=== PATIENT | female | born 1980 | race Caucasian/White ===

== ENCOUNTER 2016-12-15 17:24 | Inpatient (IN) | payer OTHER ==
--- NOTE | ~2016-12-15 | DS ---
Unit #: [id number] #: [id number] Patient: JOHN BRIONES [id number] [address] [place], [place] [address] [id number] I MR#: [id number] NAME: JOHN BRIONES. ROOM: 338 Age: 36 Sex: F Admission Date: 12/16/2016 : 1980 Discharge Date: 12/18/2016 Attending Physician: Deisy Vincent M.D. Primary Care Physician: Michael Espinoza M.D. DISCHARGE SUMMARY REASON FOR ADMISSION Left arm swelling/abscess. HISTORY OF PRESENT ILLNESS/HOSPITAL COURSE The patient is a 28-year-old female with a prior history of breast carcinoma, IV drug abuse, ongoing, who presented secondary to left anterior cubital fossa abscess. There was open purulent drainage noted, as well as surrounding erythema. She was initially admitted and placed on IV antibiotics. Consultation was placed to [facility]. The patient ultimately underwent on 12/17/2016 incision and drainage. Culture was appropriately sent, which did come back as MSSA. She was transitioned to p.o. antibiotics. Routine blood cultures through hospital course did not yield any bacterial growth. HIV screen was negative. It was noted the patient initially stated that she was homeless and had no place to go. We attempted long-term placement on 12/18/2016, however, she refused. She apparently called a friend and stated that she was going to go to her house at the time of discharge. DISPOSITION She will be discharged to her friend's home. FINAL DISCHARGE DIAGNOSES 1. Left anterior antecubital fossa abscess secondary to IV drug abuse. 2. Ongoing IV drug abuse with poor insight into disease process. 3. Prior history of breast carcinoma, status post left mastectomy at age of 31. 4. Prior history of bacterial endocarditis. 5. MSSA wound. 6. Prior history of MRSA. DISCHARGE MEDICATIONS 1. Pen VK 500 mg p.o. t.i.d. times 10 days. 2. Naprosyn 500 mg p.o. b.i.d. times 10 days. DISCHARGE CONDITION Stable. Unit #: [id number] #: [id number] Patient: JOHN BRIONES Please note, the patient's overall long-term prognosis is poor secondary to her lack of insight into her disease process as well as ongoing IV drug abuse. She was counseled on numerous occasions in regard to the same. She was also notified that if she continues on her current path of IV drug abuse, her life expectancy is likely less than one year. Dictated by... Deisy Vincent M.D. BIA/jenna TD: 12/20/2016 11:33 JOB #: [id number] DISCHARGE SUMMARY Page 1 of 1 X Deisy Vincent MD X DISCHARGE SUMMARY
--- NOTE | ~2016-12-15 | HP ---
Unit #: [id number] #: [id number] Patient: JOHN BRIONES [id number] [address] [place], [place] [address] [id number] I MR#: [id number] NAME: JOHN BRIONES. ROOM: 338 Age: 36 Sex: F Admission Date: 12/16/2016 : 1980 Attending Physician: Izabel Carter M.D. Primary Care Physician: Michael Espinoza M.D. HISTORY AND PHYSICAL CHIEF COMPLAINT Abscess/left arm swelling. HISTORY OF PRESENT ILLNESS The patient is a 36-year-old female with a history of IV drug abuse, breast cancer status post mastectomy, brought to the emergency room complaining of left arm abscess. The patient stated she has been using the IV drug abuse with meth and the last time she used IV drugs was two days ago in the other arm. The patient presented to the emergency room complaining of chills. Denies any fever. Open purulent drainage, superficial wound. The patient has been admitted for the above reasons. The patient had multiple superficial abscesses in the past and has been admitted in the past for a similar reason. PAST MEDICAL HISTORY 1. History of breast cancer, status post left mastectomy at the age of 31. 2. ADHD. 3. Bacterial endocarditis. 4. History of MRSA abscess. PAST SURGICAL HISTORY 1. Tubal ligation. 2. Left mastectomy. HOME MEDICATIONS None. SOCIAL HISTORY The patient is homeless. She smokes one half pack per day of tobacco. She ingests methamphetamine. Stated last injected was two days ago. Does not drink alcohol. FAMILY HISTORY Negative for coronary artery disease. ALLERGIES She is allergic to latex and sulfa. MEDICATIONS None. REVIEW OF SYSTEMS Fourteen point review of systems was performed and only pertinent positive Unit #: [id number] #: [id number] Patient: JOHN BRIONES findings are described above, remaining are negative. PHYSICAL EXAMINATION GENERAL: The patient is lying on the bed, not in acute distress. VITALS: Temperature 98.3, pulse 79, respiratory rate 16, blood pressure 127/85, sat'ing 100% at room air. HEAD: Atraumatic, normocephalic. EENT: Pupils equal, round, reactive to light and accommodation. Extraocular movements are intact. Dry mucous membranes. NECK: Supple. LUNGS: Decreased air entry at the bases. HEART: Regular rate and rhythm. ABDOMEN: Soft. Positive bowel sounds. EXTREMITIES: The patient has an open superficial wound at the antecubital fossa of the left arm with purulent drainage and minimal surrounding induration and tenderness. NEUROLOGIC: The patient is alert, awake, oriented. No gross focal motor deficit. DIAGNOSTIC STUDIES LABORATORY DATA: Glucose 121, BUN 13, creatinine 0.6, sodium 136, potassium 3.2, chloride 101, bicarb 25, calcium 8.6, WBC 6.8, hemoglobin 12.4, hematocrit 36.4, platelet 277. ASSESSMENT AND PLAN 1. Left arm antecubital fossa abscess, likely superficial. 2. Intravenous drug abuse. 3. History of breast cancer, status post left mastectomy. 4. Hypokalemia. Plan to admit the patient as an observation with telemetry. Continue with the IV antibiotics with clindamycin and transition to oral clindamycin. Continue with the above. Check the wound cultures and continue with contact isolation. Check the lactate and urine toxicology as not done in the emergency room and apply the bacitracin ointment to the wound. Repeat the CBC and BMP in the morning. Further recommendations will follow. HOME MEDICATIONS She is on: 1. Trazodone. 2. Neurontin. 3. Seroquel. Will continue all of the home medications. Further recommendations will follow. Dictated by Rafael Glez TD: 12/16/2016 05:34 JOB #: [id number] Unit #: [id number] #: [id number] Patient: JOHN BRIONES HISTORY AND PHYSICAL Page 1 of 1 X X HISTORY AND PHYSICAL
--- NOTE | ~2016-12-15 | OR ---
Unit #: [id number] #: [id number] Patient: JOHN BRIONES [id number] [address] [address] [id number] Domitila MR#: [id number] NAME: JOHN BRIONES ROOM: [facility] Date of Procedure: 12/17/2016 Admission Date: 12/16/2016 Surgeon: Nicholas Ram III, M.D. : 1980 Attending Physician: Deisy Vincent M.D. Primary Care Physician: Michael Espinoza M.D. OPERATIVE REPORT PREOPERATIVE DIAGNOSIS Left antecubital fossa abscess secondary to IV drug use. POSTOPERATIVE DIAGNOSIS Left antecubital fossa abscess secondary to IV drug use. PROCEDURE PERFORMED Incision and drainage of left antecubital fossa abscess. ANESTHESIA General. SPECIMEN Tissue sent to pathology. COMPLICATIONS None apparent. INDICATIONS FOR PROCEDURE This is a 36-year-old lady, who presents with history of IV drug use and a left antecubital fossa abscess. She has also some chronic swelling of left upper extremity due to prior mastectomy and axillary lymph node dissection. DESCRIPTION OF PROCEDURE After consent was obtained, the patient was brought to the operating room and placed in the supine position. General anesthetic was administered, and her left antecubital fossa was prepped and draped in standard surgical fashion. I made an elliptical incision around the area that was necrotic appearing. This was a fairly limited abscess. The debridement site was approximately 1 x 3 cm. I did debride all nonviable tissue, and I used hemostat to probe the deep spaces and there was no other extension of the infection that I could see. I then packed the wound with Betadine soaked Kerlix gauze. She tolerated the procedure without any problems and returned to the recovery room in stable condition. Dictated by... Nicholas Ram III, M.D. VCL/modl Unit #: [id number] #: [id number] Patient: JOHN BRIONES TD: 12/18/2016 07:40 JOB #: [id number] OPERATIVE REPORT Page 1 of 1 X Nicholas Ram III, MD PROCEDURE OPERATIVE NOTE
--- NOTE | ~2016-12-15 | CO ---
Unit #: [id number] #: [id number] Patient: JOHN HERNANDEZ [id number] [address] [place], [place] [address] [id number] I MR#: [id number] NAME: JOHN HERNANDEZ. ROOM: 338 Age: 36 Sex: F Admission Date: 12/16/2016 : 1980 Attending Physician: Deisy Vincent M.D. Primary Care Physician: Michael Espinoza M.D. Consultation Date: 12/16/2016 CONSULTATION REPORT REASON FOR CONSULTATION Left antecubital fossa abscess. HISTORY OF PRESENT ILLNESS Thank you very much for asking us to see Ms. Hernandez. She is a 36-year-old white female who has history of IV drug abuse and is status post left mastectomy 3-4 years ago at [facility]. Postoperative course was complicated by left upper extremity lymphedema. She has been known to use IV drugs in the past. She states that she usually injects her right upper extremity because of her left upper extremity lymphedema. She developed a red indurated fluctuant area 3-4 days ago. It subsequently has drained. She presents at this time for further evaluation and treatment. PAST MEDICAL HISTORY Endocarditis, MRSA abscesses, history of breast cancer status post left mastectomy. PAST SURGICAL HISTORY Left mastectomy, tubal ligation. HOME MEDICATIONS None. SOCIAL HISTORY Positive for tobacco, methamphetamine but no alcohol. FAMILY HISTORY Noncontributory. ALLERGIES Latex and sulfa. REVIEW OF SYSTEMS Negative except for above. IMMUNIZATIONS Immunization status is unknown. PHYSICAL EXAMINATION GENERAL: Well-developed, well-nourished white female in no apparent distress. EXTREMITIES: Examination of her left upper extremity reveals a necrotic open area of the left antecubital fossa. She has left upper extremity lymphedema. No significant right upper extremity lymphedema is present. Unit #: [id number] #: [id number] Patient: JOHN HERNANDEZ DIAGNOSTIC STUDIES LABORATORY STUDIES: The patient has a CMP that shows a glucose of 99, BUN 9, creatinine 0.5. Normal liver function studies. White count is 7.4 with a hemoglobin of 12.5, hematocrit 36.9. IMPRESSION A 36-year-old white female with a left antecubital fossa necrotic abscess. RECOMMENDATIONS We recommend incision, drainage and debridement in the operating room. She has eaten today, so we will schedule this for tomorrow. All the risks and benefits have been fully explained to the patient in detail, including the risk of bleeding, infection, neurovascular injury, worsening lymphedema, additional surgery and other risks. She understands completely and requests to proceed. Dictated by... Rafael Latham/ezequiel TD: 12/17/2016 09:42 JOB #: [id number] CONSULTATION REPORT Page 1 of 1 X Kel Alcaraz MD X CONSULTATION REPORT
[~2016-12-15 17:24] MED LIST: ADDERALL 30 MG30 M1 PO; ALPRAZOLAM PO; ANTIDIARRHEAL2 MG PO; BENADRYL25 MG PO; CLINDAMYCIN HC300 MG PO; CUBICIN IV; DERMACORT1 GM EXT; DESYREL100 MG PO; ELIDEL100 GM TOP; FLEXERIL PO; FLEXERIL10 MG PO; GABAPENTIN300 MG PO; HYDROCODON-ACE1 EACH PO; IBUPROFEN400 MG PO; KEFLEX500 M1 PO; LOMOTIL TABLET1 TAB PO; MEDROL DOSE PAK; MEDROL DOSEPAK4 MG DOB; METHADONE HCL10 MG PO; METHOCARBAMOL500 MG PO; NAPROXEN PO; NORCO 10-325 TA1 TAB PO; ORUDIS75 M1 PO; OXAPROZIN600 MG PO; PEN-VEE K PO; PENICILLIN V P500 MG PO; PHENERGAN25 MG PO; REQUIP0.25 MG PO; TRAMADOL HCL50 M1 PO; ULTRAM PO; VICODIN 5/500 T1 TAB PO; VISTARIL50 MG PO; XANAX2 MG PO; ZOFRAN ODT4 MG DOB; ZYVOX600 MG PO; [UNRECOGNIZED DRUG - OTHER]
[2016-12-15 21:24] LABS: BASOPHIL% 0.3 % (0-2.5); EOSINOPHIL# 0.2 X10e3 (0-0.7); EOSINOPHIL% 2.9 % (0.0-7.0); HEMATOCRIT 36.4 % (35.0-45.0); HEMOGLOBIN 12.4 gm/dL (12.0-16.0); LYMPHOCYTE# 1.9 X10e3 (1.0-3.5); LYMPHOCYTE% 28.2 % (17.0-45.0); MEAN PLATELET VOLUME 7.9 FL (6.5-11.5); MONOCYTE# 0.5 X10e3 (0-1.0); MONOCYTE% 6.7 % (3.0-12.0); NEUTROPHIL# 4.2 X10e3 (1.5-7.1); NEUTROPHIL% 61.9 % (40-75); PLATELET COUNT 277 X10e3 (140-420); RED CELL DISTRIBUTION WIDTH 13.9 % (11.0-15.5); WHITE BLOOD COUNT 6.8 X10e3 (4.0-10.5)
[2016-12-15 21:27] LABS: DIFF IND NO
[2016-12-15 21:49] LABS: BUN/CREATININE RATIO 21.66; CALCIUM SERUM 8.6 mg/dL (8.4-10.2); CREATININE SERUM 0.6 mg/dL (0.6-1.4); GLOM FILT RATE Estimated 115.6 mL/min (>60); POTASSIUM 3.2 mmol/L (3.5-5.1)
[2016-12-16] MEDS ORDERED: TRAZODONE PO (00:10)
[2016-12-16] MEDS ORDERED: SEROQUEL PO (00:11)
[2016-12-16] MEDS ORDERED: NEURONTIN600 MG PO (00:11)
[2016-12-16 02:24] LABS: AMPHETAMINE POS (NEG); BARBITURATES NEG (NEG); BENZODIAZEPINES NEG (NEG); COCAINE NEG (NEG); MARIJUANA POS (NEG); OPIATES POS (NEG); TRICYCLIC ANTIDEPRESSANTS NEG (NEG); U METHADONE NEG (NEG)
[2016-12-16 08:01] LABS: BASOPHIL% 0.5 % (0-2.5); EOSINOPHIL# 0.3 X10e3 (0-0.7); EOSINOPHIL% 3.8 % (0.0-7.0); HEMATOCRIT 36.9 % (35.0-45.0); HEMOGLOBIN 12.5 gm/dL (12.0-16.0); LYMPHOCYTE# 2.1 X10e3 (1.0-3.5); LYMPHOCYTE% 28.1 % (17.0-45.0); MEAN CELL VOLUME 90.5 FL (83-96); MEAN CORPUSCULAR HEMOGLOBIN 30.6 PG (28-34); MEAN CORPUSCULAR HGB CONC 33.8 g/dL (30-36); MONOCYTE# 0.5 X10e3 (0-1.0); MONOCYTE% 6.7 % (3.0-12.0); NEUTROPHIL# 4.5 X10e3 (1.5-7.1); NEUTROPHIL% 60.9 % (40-75); PLATELET COUNT 264 X10e3 (140-420); RED BLOOD COUNT 4.08 X10e (3.90-5.30); RED CELL DISTRIBUTION WIDTH 13.9 % (11.0-15.5); WHITE BLOOD COUNT 7.4 X10e3 (4.0-10.5)
[2016-12-16 08:02] LABS: DIFF IND NO
[2016-12-16 08:52] LABS: CALCIUM SERUM 8.8 mg/dL (8.4-10.2); CREATININE SERUM 0.5 mg/dL (0.6-1.4); GLOM FILT RATE Estimated 122.8 mL/min (>60); POTASSIUM 3.8 mmol/L (3.5-5.1)
[2016-12-17 05:28] LABS: HEMATOCRIT 37.8 % (35.0-45.0); HEMOGLOBIN 12.5 gm/dL (12.0-16.0); MEAN CELL VOLUME 91.5 FL (83-96); MEAN CORPUSCULAR HEMOGLOBIN 30.3 PG (28-34); MEAN CORPUSCULAR HGB CONC 33.2 g/dL (30-36); MEAN PLATELET VOLUME 8.2 FL (6.5-11.5); RED BLOOD COUNT 4.14 X10e (3.90-5.30); WHITE BLOOD COUNT 5.8 X10e3 (4.0-10.5)
[2016-12-17 06:04] LABS: BUN/CREATININE RATIO 31.66; CALCIUM SERUM 9.3 mg/dL (8.4-10.2); CREATININE SERUM 0.6 mg/dL (0.6-1.4); GLOM FILT RATE Estimated 115.6 mL/min (>60); POTASSIUM 4.5 mmol/L (3.5-5.1)
[2016-12-18 02:23] LABS: HEMOGLOBIN 12.5 gm/dL (12.0-16.0); MEAN CELL VOLUME 92.6 FL (83-96); MEAN CORPUSCULAR HEMOGLOBIN 30.5 PG (28-34); MEAN CORPUSCULAR HGB CONC 32.9 g/dL (30-36); MEAN PLATELET VOLUME 8.1 FL (6.5-11.5); RED BLOOD COUNT 4.1 X10e (3.90-5.30); WHITE BLOOD COUNT 6.4 X10e3 (4.0-10.5)
[2016-12-18 02:58] LABS: BUN/CREATININE RATIO 34.28; CALCIUM SERUM 8.7 mg/dL (8.4-10.2); CREATININE SERUM 0.7 mg/dL (0.6-1.4); GLOM FILT RATE Estimated 109.9 mL/min (>60); POTASSIUM 4.4 mmol/L (3.5-5.1)
[2016-12-18] MEDS ORDERED: ACETAMINOPHEN PO (10:06)
[2016-12-18] MEDS ORDERED: DESYREL50 MG PO (10:11)
[2016-12-18] MEDS ORDERED: NICOTINE PATCH1 EACH TD (10:12)
[2016-12-18] MEDS ORDERED: NAPROSYN500 MG PO (10:12)
[2016-12-18] MEDS ORDERED: PEN-VEE K PO (10:14)
[2016-12-18] MEDS ORDERED: H-CHLOR 12473 ML (10:14)
[2016-12-18] MEDS ORDERED: NORMAL SALINE TOP (10:27)
== END 2016-12-18 18:54 | disposition home or self-care (01) | DRG 603 ==
LOC: CED 17:24 → CEDOF 12-16 00:14 → C3A PCU 12-16 00:14 → CED 12-16 00:14 → C3A PCU 12-16 00:30 → CED 12-16 00:30 → CEDOF 12-16 00:30 → C3A PCU 12-16 02:29 → CEDOF 12-16 02:29 → C3A PCU 12-16 08:20
PROVIDERS: Emergency Medicine; Family Medicine; Surgery
PROC: 05H333Z Insertion of Infusion Device into Right Innominate Vein, Percutaneous Approach (ICD-10-PCS; 2016-12-16)
PROC: B54MZZA Ultrasonography of Right Upper Extremity Veins, Guidance (ICD-10-PCS; 2016-12-16)
PROC: 0X9F0ZZ Drainage of Left Lower Arm, Open Approach (ICD-10-PCS; principal; 2016-12-17 10:00)
DX: L02.414 Cutaneous abscess of left upper limb (principal); F15.10 Other stimulant abuse, uncomplicated; Z86.14 Personal history of Methicillin resistant Staphylococcus aureus infection; Z85.3 Personal history of malignant neoplasm of breast; F90.9 Attention-deficit hyperactivity disorder, unspecified type; Z88.2 Allergy status to sulfonamides; F17.210 Nicotine dependence, cigarettes, uncomplicated; Z59.0 Homelessness; Z91.040 Latex allergy status; E87.6 Hypokalemia
CPT/HCPCS: 36415; 80048; 80202; 80307; 83605; 84703; 85025; 85027; 87040; 87070; 87077; 87186; 87205; 87806; 88304; 88312; 94760; 99285; J1650; J2250; J2270; J2405; J2543; J3010; J3370

== ENCOUNTER 2016-12-27 16:54 | Inpatient (IN) | payer OTHER ==
--- NOTE | ~2016-12-27 | CO ---
Unit #: [id number] #: [id number] Patient: JOHN BRIONES [id number] [address] [place], [place] [address] [id number] I MR#: [id number] NAME: JOHN BRIONES ROOM: 478 Age: 36 Sex: F Admission Date: 12/28/2016 : 1980 Attending Physician: eDisy Vincent M.D. Primary Care Physician: Michael Espinoza M.D. Consultation Date: 12/31/2016 CONSULTATION REPORT REASON FOR CONSULTATION Opioid abuse, depression, and suicidal ideation. HISTORY OF PRESENT ILLNESS Ms. Albright is a 36-year-old female seen in room 478, bed 1 on 12/31/2016 at [facility]. The patient reported history of methamphetamine abuse, depression, suicidal ideation. The patient reported having currently withdrawal symptom. The patient is currently on a 72-hour hold. Denied any plans. Denied any homicidal ideation or psychotic symptom, but sad, depressed, suicidal ideation. The patient's vital signs; temperature 97.6, pulse 67, respiratory rate 18, blood pressure 139/69, oxygen saturation 98%. The patient currently homeless, reported history of cancer, reported living on Street, feeling of hopelessness, worthlessness, no plans. The patient is currently dealing with medical condition abscess. PAST PSYCHIATRIC HISTORY Remarkable for history of inpatient treatment at [facility] for detox in the past. History of substance abuse. MEDICAL HISTORY History of breast carcinoma, ADHD, prior history of bacterial endocarditis, history of MRSA abscess, ongoing IV drug abuse. MEDICATION Please refer to MAR for detail. FAMILY HISTORY AND SOCIAL HISTORY The patient reports that she has a poor support system. No history of any abuse. History of substance abuse reported IV heroin and amphetamine abuse. REVIEW OF SYSTEMS Complete review of systems is unremarkable except as mentioned above depression and severe anxiety. MENTAL STATUS EXAMINATION Vital signs; temperature 97.6, pulse 67, respiratory rate 18, blood pressure 139/69, oxygen saturation 99%. General appearance; the patient is thin built, and dressed casually in hospital attire. Attention span and concentration, fair. Speech, regular rate. Oriented in time, place, and person. Mood and affect, sad and depressed. Thought process, coherent. Thought content, the patient denied any thoughts of harming others, but having suicidal ideation, sad, depressed. Denied any Unit #: [id number] #: [id number] Patient: JOHN BRIONES hallucination. Recent and remote memory, fair. Language, intact. Fund of knowledge, fair. Insight and judgment, fair to slightly impaired. DIAGNOSES Psychiatric: Opioid use disorder, severe, F11.20; amphetamine use disorder, severe, F15.20; major depressive disorder, recurrent, severe, F33.2; rule out bipolar mood disorder. Secondary diagnosis: Deferred. Medical diagnosis: Please refer to H and P. Stressors: Psychosocial stressors. ASSESSMENT/PLAN 1. Supportive psychotherapy and psychoeducation provided to the patient. 2. Educated about benefits and side effects of medication and course and prognosis of illness. 3. Advised to continue with 72-hour hold, one-to-one monitoring for safety of patient and once the patient is medically stable advised to call transfer center and transfer the patient to [facility] for inpatient psychiatric treatment. Please feel free to call if any questions, telephone #[phone]. Dictated by... Mario Cruz M.D. ATTILA/baylee TD: 12/31/2016 23:59 JOB #: [id number] CONSULTATION REPORT Page 1 of 1 X Mario Cruz MD CONSULTATION REPORT
--- NOTE | ~2016-12-27 | CO ---
Unit #: [id number] #: [id number] Patient: JOHN BRIONES [id number] [address] [place], [place] [address] [id number] I MR#: [id number] NAME: JOHN BRIONES ROOM: 478 Age: 36 Sex: F Admission Date: 12/28/2016 : 1980 Attending Physician: Deisy Vincent M.D. Primary Care Physician: Michael Espinoza M.D. Consultation Date: 12/28/2016 CONSULTATION REPORT BRIEF HISTORY The patient is a 36-year-old with chronic IV drug abuse who is status post incision and drainage of left upper extremity wound, presents for evaluation of arm swelling and erythema. During evaluation, she was found to have another lesion on her right upper extremity. This has palpable purulence. PAST MEDICAL HISTORY Breast cancer, MRSA, lymphedema of left upper extremity. She has had a left mastectomy, tubal ligation. MEDICATIONS Neurontin, Seroquel, acetaminophen, nicotine patch, Naprosyn. SOCIAL HISTORY IV drug abuse. Does smoke daily. FAMILY HISTORY Negative for GI malignancy. REVIEW OF SYSTEMS No cardiopulmonary complaints at this time. Else, 10 systems reviewed and negative. PHYSICAL EXAMINATION GENERAL: She is awake, alert, appropriate. VITAL SIGNS: Currently afebrile. Temperature 98.5. HEENT: Unremarkable. NECK: Supple. No JVD. Trachea midline. LUNGS: Clear to auscultation. Bilateral breath sounds symmetric. CARDIOVASCULAR: Regular rate and rhythm. ABDOMEN: Soft, nontender, and nondistended. I palpate no masses. No hepatosplenomegaly. EXTREMITIES: Swelling on the left upper extremity, likely chronic. Appears to be some erythema on the forearm. There is an open wound measuring 3 cm x 1 cm. This appeared to be clean. Right upper extremity shows an area of fluctuance in the antecubital fossa. This is palpable tenderness. There is erythema. ASSESSMENT Abscess secondary to IV drug abuse. PLAN Unit #: [id number] #: [id number] Patient: JOHN BRIONES Recommend incision and drainage in the operating room. Discussed in detail. Dictated by... Anam Alfredo M.D. FELTON/baylee TD: 12/28/2016 07:18 JOB #: [id number] CONSULTATION REPORT Page 1 of 1 X Anam Alfredo MD CONSULTATION REPORT
--- NOTE | ~2016-12-27 | US140 ---
[facility] A Service of [facility] RADIOLOGY TEXT RESULTS PATIENT: JOHN BRIONES LOCATION: [facility] : [birth year] UNIT #: [id number] AGE: [address]: Deisy Vincent MD SEX: F ORDER DR: [id number] [facility] [address] [facility]. [place], [place] [address] [id number] I MR#: [id number] Acc #: [id number] NAME: JOHN BRIONES. : 1980 SEX: F STUDY DATE/TIME: 12/27/2016 23:24 UNIT: CEDOF ROOM: 28426 STUDY DESCRIPTION: US UE Veins Unilat or Ltd Stdy Attending Physician: Homero Mendoza M.D. Ordering Physician: Deandra Portillo M.D. Primary Care Physician: Michael Espinoza M.D. MEDICAL IMAGING REPORT This report is preliminary unless electronic signature is present EXAM US upper extremity veins left HISTORY Left upper extremity swelling and pain. 1-day duration. COMPARISON Left upper extremity venous duplex Doppler 09/10/2016. TECHNIQUE Venous ultrasound examination of the left upper extremity was performed using grayscale, spectral Doppler and color flow Doppler imaging. FINDINGS The examination is negative. There is no evidence of deep venous thrombus within the left internal jugular vein, subclavian vein, axillary vein or brachial veins. No superficial venous thrombus is seen within the cephalic or basilic veins. IMPRESSION Negative examination. No evidence of left upper extremity venous thrombosis. Dictated by... Ned Davis M.D. THIS IS AN ELECTRONICALLY VERIFIED REPORT Ned Davis M.D. at 12/28/2016 11:16 PM RPC/randyr TD: 12/28/2016 04:43 [facility] A Service of [facility] RADIOLOGY TEXT RESULTS PATIENT: JOHN BRIONES LOCATION: [facility] : [birth year] UNIT #: [id number] AGE: [address]: Deisy Vincent MD SEX: F ORDER DR: JOB #: [id number] MEDICAL IMAGING REPORT Page 1 of 1 COPY
--- NOTE | ~2016-12-27 | EKG ---
PATIENT: JOHN BRIONES UNIT #: [id number] Ventricular Rate: 63 BPM Atrial Rate: 63 BPM P-R Interval: 126 ms QRS Duration: 106 ms Q-T Interval: 408 ms QTC Calculation(Bezet): 417 ms P [place]: 6 degrees Calculated R [place]: 66 degrees Calculated T [place]: 74 degrees Diagnosis Line: Normal sinus rhythm with sinus arrhythmia Diagnosis Line: Normal ECG Diagnosis Line: When compared with ECG of 28-APR-2016 22:27, Diagnosis Line: QT has shortened Diagnosis Line: Confirmed by CARLOS A PAYNE MD ([id number]) on Diagnosis Line: 12/28/2016 4:29:12 PM INTERPRETING MD: KERRY ROGERS
--- NOTE | ~2016-12-27 | DS ---
Unit #: [id number] #: [id number] Patient: JOHN BRIONES [id number] [address] [place], [place] [address] [id number] I MR#: [id number] NAME: JOHN BRIONES. ROOM: 478 Age: 36 Sex: F Admission Date: 12/28/2016 : 1980 Discharge Date: 12/30/2016 Attending Physician: Deisy Vincent M.D. Primary Care Physician: Michael Espinoza M.D. DISCHARGE SUMMARY DISCHARGE DIAGNOSES 1. Right forearm abscess and cellulitis. 2. Intravenous drug abuse. 3. History of endocarditis. HOSPITAL COURSE The patient is a 36-year-old female admitted to [facility] secondary to right forearm abscess with drainage. She had just been at this facility about two weeks ago when she was noted to have a similar malady on the left. She was started on Zosyn and vanc for her infection. She was seen by [facility] and taken for I and D of her right upper extremity on the . Since that time, the patient has done well. Cultures are without growth. Given improvement in her cellulitis and debridement of her abscess, the patient is being discharged home on antibiotics. She will complete a course of doxycycline for Staph. DISCHARGE MEDICATIONS 1. Neurontin 600 mg p.o. t.i.d. 2. Desyrel 200 mg p.o. daily and 50 at bedtime. 3. Seroquel 25 mg p.o. t.i.d. 4. Naproxen 500 mg p.o. b.i.d. 5. Doxycycline 100 mg p.o. b.i.d. x8 days. FOLLOWUP Patient should follow up with [facility] in two weeks. Dictated by... Homero Mendoza M.D. MANDY/jozef TD: 01/01/2017 07:37 JOB #: [id number] Unit #: [id number] #: [id number] Patient: JOHN BRIONES DISCHARGE SUMMARY Page 1 of 1 X Homero Mendoza MD DISCHARGE SUMMARY
--- NOTE | ~2016-12-27 | CO ---
Unit #: [id number] #: [id number] Patient: JOHN BRIONES [id number] [address] [address] [id number] I MR#: [id number] NAME: JOHN BRIONES ROOM: 478 Age: 36 Sex: F Admission Date: 12/28/2016 : 1980 Attending Physician: Deisy Vincent M.D. Primary Care Physician: Michael Espinoza M.D. Consultation Date: 01/01/2017 CONSULTATION REPORT REASON FOR CONSULTATION Followup. DISCUSSION Ms. Albright is a 36-year-old white female, seen in room 478, bed 1 on 01/01/2017 at [facility]. The patient dressed in hospital attire, seemed somewhat anxious, nervous, sitting on the edge of the bed. The patient reported having severe anxiety, feeling sad, depressed, still having suicidal ideation, currently on 72-hour hold, has a one-to-one sitter. The patient was scheduled to go to [facility]. Requested for medication for anxiety. The patient's vital signs; temperature 97.4, pulse 72, respirations 16, blood pressure 151/67, oxygen saturation 98%. The patient denied any hallucinations, but sad, depressed, withdrawn. REVIEW OF SYSTEMS A complete review of systems is unremarkable except as mentioned above. MENTAL STATUS EXAMINATION Vital signs; please see above. General appearance; the patient dressed in hospital attire, seemed very anxious and nervous. Attention span and concentration, fair. Speech; regular rate and coherent. Oriented in time, place, and person. Mood and affect; labile, sad, depressed. Thought process, coherent. Thought content; the patient reported having suicidal ideation, denied any plans, denied any hallucination, but guarded and paranoid. Recent and remote memory, fair. Language, intact. Fund of knowledge, fair to slightly impaired. DIAGNOSES Opioid use disorder, severe, F11.20; major depressive disorder, recurrent, severe, F33.2. ASSESSMENT AND PLAN 1. Supportive psychotherapy and psychoeducation provided to the patient. 2. Educated about benefits and side effects of medication and course and prognosis of illness with a plan to transfer the patient to [facility] for further treatment. Please feel free to call if any questions, telephone #[phone]. Dictated by... Mario Cruz M.D. [facility]/baylee Unit #: [id number] #: [id number] Patient: JOHN BRIONES TD: 01/01/2017 21:59 JOB #: [id number] CONSULTATION REPORT Page 1 of 1 X Mario Cruz MD X CONSULTATION REPORT
--- NOTE | ~2016-12-27 | OR ---
Unit #: [id number] #: [id number] Patient: JOHN BRIONES [id number] [address] [address] [id number] MR#: [id number] NAME: JOHN BRIONES ROOM: 478 Date of Procedure: 12/28/2016 Admission Date: 12/28/2016 Surgeon: Anam Alfredo M.D. : 1980 Attending Physician: Deisy Vincent M.D. Primary Care Physician: Michael Espinoza M.D. OPERATIVE REPORT PREOPERATIVE DIAGNOSIS Right upper extremity abscess secondary to IV drug abuse. POSTOPERATIVE DIAGNOSIS Right upper extremity abscess secondary to IV drug abuse. PROCEDURE PERFORMED Incision and drainage and debridement of right upper extremity antecubital fossa abscess. ANESTHESIA General anesthesia. ESTIMATED BLOOD LOSS Minimal. IV FLUIDS 500 crystalloid. COMPLICATIONS None. INDICATIONS FOR PROCEDURE The patient is a 36-year-old IV drug abuser with an abscess in her right antecubital fossa. DESCRIPTION OF PROCEDURE The patient was taken to the operating theater and placed in supine position. General anesthesia was induced. Her right upper extremity was prepped and draped. An incision was then made inclusive of the area of necrosis measuring 4 cm x 2 cm. This was excised with a knife down to muscle fascia. This was inclusive of a thrombosed vein. Cultures were obtained. I irrigated thoroughly with normal saline and packed with Betadine. The patient tolerated the procedure well and sent to the recovery room in good condition. Dictated by... Rafael JacksonO/leninl Unit #: [id number] #: [id number] Patient: JOHN BRIONES TD: 12/29/2016 09:01 JOB #: [id number] OPERATIVE REPORT Page 1 of 1 X Anam Alfredo MD PROCEDURE OPERATIVE NOTE
--- NOTE | ~2016-12-27 | CR72 ---
[facility] A Service of [facility] & [facility] RADIOLOGY TEXT RESULTS PATIENT: JOHN BRIONES LOCATION: [facility] : 76 UNIT #: [id number] AGE: [address]: Deisy Vincent MD SEX: F ORDER DR: [id number] [facility] [address] [place], [place] [address] [id number] MR#: [id number] Acc #: [id number] NAME: JOHN BRIONES. : 1980 SEX: F STUDY DATE/TIME: 12/27/2016 19:12 UNIT: ZOILA ROOM: STUDY DESCRIPTION: CR Chest Single View Portable Attending Physician: Deandra Portillo M.D. Ordering Physician: Deandra Portillo M.D. Primary Care Physician: Michael Espinoza M.D. MEDICAL IMAGING REPORT This report is preliminary unless electronic signature is present EXAM Portable chest x-ray 12/27/2016 HISTORY Left arm swelling, abscess, chest pain, short of air today. Stage IV breast cancer. FINDINGS AP radiograph of the chest is presented. Comparison 09/09/2016 at 16:58 hours. Postoperative changes left mastectomy and axillary node dissection. Heart upper limits of normal in size. Lung volumes slightly lower than on the prior examination. Pulmonary vasculature is mildly prominent but remains distinct. Correlate with any clinical indications of mild vascular congestion. No berto pulmonary edema. No pleural effusion or pneumothorax. No suspicious nodule. No acute-appearing bony abnormality. Dictated by... Anam Menjivar M.D. THIS IS AN ELECTRONICALLY VERIFIED REPORT Anam Menjivar M.D. at 12/31/2016 11:00 PM JAZMYN/cierra TD: 12/27/2016 23:41 JOB #: [id number] MEDICAL IMAGING REPORT Page 1 of 1 COPY
--- NOTE | ~2016-12-27 | DS ---
Unit #: [id number] #: [id number] Patient: JOHN BRIONES [id number] [address] [place], [place] [address] [id number] MR#: [id number] NAME: JOHN BRIONES. ROOM: 478 Age: 36 Sex: F Admission Date: 12/28/2016 : 1980 Discharge Date: 12/31/2016 Attending Physician: Deisy Vincent M.D. Primary Care Physician: Michael Espinoza M.D. DISCHARGE SUMMARY PLACE OF DISCHARGE [facility]. HISTORY OF PRESENT ILLNESS/HOSPITAL COURSE Please see H and P for complete details. Patient underwent I and D by [facility]. Ultimately, wound cultures returned back with no active bacterial growth which was seen. Erythema improved in regards to aforementioned abscess. Patient was felt to be stable for discharge. During time of discharge, patient stated that as soon as she got home that she would kill herself. We consulted Dr. Cruz. Patient was placed on 72-hour hold. Decision was made for the patient to be transferred to [facility] for further evaluation. FINAL DISCHARGE DIAGNOSES 1. Right upper extremity abscess, status post I and D. 2. Recent hospital admission secondary to left (1) fossa abscess, status post I and D at that time. 3. Intravenous drug abuse with poor insight into disease process. 4. Prior history of breast carcinoma, details unclear. 5. Generalized anxiety disorder. 6. Underlying mental illness. DISPOSITION [facility] DISCHARGE MEDICATION Doxycycline 100 mg p.o. b.i.d. will be written at time of discharge. PROGNOSIS Overall, patient's long-term prognosis is poor. She has very little insight into her disease process and her life expectancy is likely less than six months. Dictated by... Deisy Vincent M.D. BIA/venkatesh TD: 01/01/2017 08:05 JOB #: [id number] Unit #: [id number] #: [id number] Patient: JOHN BRIONES DISCHARGE SUMMARY Page 1 of 1 X Deisy Vincent MD DISCHARGE SUMMARY
--- NOTE | ~2016-12-27 | HP ---
Unit #: [id number] #: [id number] Patient: JOHN BRIONES [id number] [address] [address] [id number] I MR#: [id number] NAME: JOHN BRIONES ROOM: 478 Age: 36 Sex: F Admission Date: 12/28/2016 : 1980 Attending Physician: Deisy Vincent M.D. Primary Care Physician: Michael Espinoza M.D. HISTORY AND PHYSICAL REASON FOR ADMISSION Right forearm abscess/drainage. HISTORY OF PRESENT ILLNESS The patient is a very pleasant 36-year-old female who was recently discharged from our hospital approximately two weeks ago for a left anterior cubital fossa abscess that had undergone I and D at that time by [facility]. At that time, she was discharged to reside with a friend. She does have a longstanding history of IV drug and/or heroin use. She states she had been injecting, as per her usual routine. She began developing right arm cellulitis, redness, pain as well as associated swelling. I am currently evaluating her on the floor. She has just returned from the OR after undergoing and I and D and exploration by [facility] [place] [facility] of her right upper extremity. PAST MEDICAL HISTORY 1. Prior history of breast carcinoma. Per her report, she did not undergo any treatment secondary to her lack of insurance as well as homelessness. 2. ADHD. 3. Prior history of bacterial endocarditis. 4. Prior history of MRSA abscess. 5. Ongoing IV drug abuse with very little insight into her disease process. PAST SURGICAL HISTORY 1. Tubal ligation. 2. Left mastectomy. HOME MEDICATIONS None. SOCIAL HISTORY The patient is homeless. She resides with different friends. She smokes on a daily basis. She uses IV drugs on a daily basis. No alcohol consumption per her report. FAMILY HISTORY Negative. Otherwise reviewed and discussed with patient. Unit #: [id number] #: [id number] Patient: JOHN BRIONES ALLERGIES Latex, sulfa. HOME MEDICATIONS None. REVIEW OF SYSTEMS Please see HPI. Twelve point otherwise negative except for those positives noted in the HPI. PHYSICAL EXAMINATION VITAL SIGNS: Temperature 98.8, pulse 91, respirations 16, blood pressure 138/85. GENERAL APPEARANCE: 36-year-old female in no acute distress. HEAD EXAM: Atraumatic, normocephalic. EAR EXAM: Tympanic membranes do not reveal any erythema or injection. NECK EXAM: Supple. CVS: S1, S2 without murmur. RESPIRATORY: Clear. GI/ABDOMEN EXAM: Nontender, nondistended. EXTREMITIES: Bilateral upper extremities show, on her left upper extremity, in the anterior cubital fossa area there is an open albeit healing area with no active drainage. There is surrounding erythema noted approximately 2 cm in diameter. Her right upper extremity is currently dressed and she has thus returned from the OR. No further exam was done. NEUROLOGICAL EXAM: The patient is A and O x3 with no evidence of any focal nerve deficits. DIAGNOSTIC STUDIES LABORATORY: Labs at time of admission include BMP essentially unremarkable. Hemoglobin 11.7, hemoglobin 9.7. INITIAL ADMISSION DIAGNOSES 1. Right upper extremity abscess/cellulitis. 2. Recent admission for left anterior cubital fossa abscess, status post incision and drainage. 3. Ongoing intravenous drug abuse with poor insight into disease process. 4. Prior history of breast carcinoma, details unclear. 5. Underlying mental illness. PLAN Admission Med/Surg floor. [facility] has already been consulted. patient has already undergone I and D. Ascertain blood cultures. If blood cultures come back positive, further evaluation with [facility] and/or ID consult. For now, continue IV vancomycin, IV antibiotics as is. Await wound cultures. Overall, this patient does have a poor prognosis. She is unwilling to accept or consider rehab potential for trying to discontinue IV drug abuse and her terminal worker prognosis is poor at best. Dictated by Deisy Vincent M.D. ISN/df Unit #: [id number] #: [id number] Patient: JOHN BRIONES TD: 12/30/2016 07:55 JOB #: [id number] HISTORY AND PHYSICAL Page 1 of 1 X Deisy Vincent MD HISTORY AND PHYSICAL
[~2016-12-27 16:54] MED LIST changes: +ACETAMINOPHEN PO; +DESYREL50 MG PO; +H-CHLOR 12473 ML; +NAPROSYN500 MG PO; +NEURONTIN600 MG PO; +NICOTINE PATCH1 EACH TD; +NORMAL SALINE TOP; +SEROQUEL PO; +TRAZODONE PO
[2016-12-27 19:44] LABS: BASOPHIL# 0.1 X10e3 (0-0.3); BASOPHIL% 0.5 % (0-2.5); EOSINOPHIL# 0.2 X10e3 (0-0.7); EOSINOPHIL% 1.6 % (0.0-7.0); HEMOGLOBIN 11.9 gm/dL (12.0-16.0); LYMPHOCYTE# 3.4 X10e3 (1.0-3.5); LYMPHOCYTE% 26.2 % (17.0-45.0); MEAN CELL VOLUME 92.2 FL (83-96); MEAN CORPUSCULAR HEMOGLOBIN 30.4 PG (28-34); MEAN CORPUSCULAR HGB CONC 32.9 g/dL (30-36); MEAN PLATELET VOLUME 8.1 FL (6.5-11.5); MONOCYTE# 0.5 X10e3 (0-1.0); MONOCYTE% 4.2 % (3.0-12.0); NEUTROPHIL# 8.7 X10e3 (1.5-7.1); NEUTROPHIL% 67.5 % (40-75); PLATELET COUNT 367 X10e3 (140-420); RED CELL DISTRIBUTION WIDTH 13.9 % (11.0-15.5); WHITE BLOOD COUNT 12.9 X10e3 (4.0-10.5)
[2016-12-27 19:45] LABS: DIFF IND NO
[2016-12-27 19:52] LABS: POC - CKMB 1.3 ng/mL (0.0-7.9); POC - TROPONIN <0.05 ng/mL (<=0.05)
[2016-12-27 20:22] LABS: ALBUMIN SERUM 3.7 g/dL (3.5-5.0); BILIRUBIN, DIRECT 0.1 mg/dL (0.0-0.2); BILIRUBIN,INDIRECT 0.2 mg/dL (0.0-0.9); BILIRUBIN,TOTAL 0.3 mg/dL (0.2-2.0); BUN/CREATININE RATIO 16.66; CALCIUM SERUM 8.8 mg/dL (8.4-10.2); CREATININE SERUM 0.9 mg/dL (0.6-1.4); GLOM FILT RATE Estimated 81.2 mL/min (>60); PROTEIN TOTAL SERUM 8.1 g/dL (6.0-8.3)
[2016-12-28 07:23] LABS: BASOPHIL% 0.3 % (0-2.5); EOSINOPHIL# 0.4 X10e3 (0-0.7); HEMATOCRIT 35.3 % (35.0-45.0); HEMOGLOBIN 11.7 gm/dL (12.0-16.0); LYMPHOCYTE# 2.9 X10e3 (1.0-3.5); LYMPHOCYTE% 30.3 % (17.0-45.0); MEAN CELL VOLUME 92.9 FL (83-96); MEAN CORPUSCULAR HEMOGLOBIN 30.7 PG (28-34); MEAN PLATELET VOLUME 8.5 FL (6.5-11.5); MONOCYTE# 0.6 X10e3 (0-1.0); MONOCYTE% 5.8 % (3.0-12.0); NEUTROPHIL# 5.8 X10e3 (1.5-7.1); NEUTROPHIL% 59.6 % (40-75); PLATELET COUNT 324 X10e3 (140-420); RED CELL DISTRIBUTION WIDTH 14.2 % (11.0-15.5); WHITE BLOOD COUNT 9.7 X10e3 (4.0-10.5)
[2016-12-28 07:32] LABS: DIFF IND NO
[2016-12-28 07:56] LABS: BUN/CREATININE RATIO 17.14; CALCIUM SERUM 8.6 mg/dL (8.4-10.2); CREATININE SERUM 0.7 mg/dL (0.6-1.4); GLOM FILT RATE Estimated 109.9 mL/min (>60); MAGNESIUM 1.6 mg/dL (1.6-3.0); POTASSIUM 4.1 mmol/L (3.5-5.1)
[2016-12-28 23:28] LABS: AMPHETAMINE POS (NEG); BARBITURATES NEG (NEG); BENZODIAZEPINES POS (NEG); COCAINE NEG (NEG); MARIJUANA NEG (NEG); OPIATES POS (NEG); TRICYCLIC ANTIDEPRESSANTS NEG (NEG); U METHADONE NEG (NEG)
[2016-12-29 03:29] LABS: BASOPHIL% 0.2 % (0-2.5); EOSINOPHIL# 0.1 X10e3 (0-0.7); HEMOGLOBIN 11.2 gm/dL (12.0-16.0); LYMPHOCYTE# 2.4 X10e3 (1.0-3.5); MEAN CELL VOLUME 92.5 FL (83-96); MEAN CORPUSCULAR HEMOGLOBIN 30.5 PG (28-34); MEAN PLATELET VOLUME 8.5 FL (6.5-11.5); MONOCYTE# 0.5 X10e3 (0-1.0); MONOCYTE% 5.6 % (3.0-12.0); NEUTROPHIL# 5.1 X10e3 (1.5-7.1); NEUTROPHIL% 63.2 % (40-75); PLATELET COUNT 295 X10e3 (140-420); RED BLOOD COUNT 3.68 X10e (3.90-5.30); RED CELL DISTRIBUTION WIDTH 14.2 % (11.0-15.5); WHITE BLOOD COUNT 8.1 X10e3 (4.0-10.5)
[2016-12-29 03:38] LABS: DIFF IND NO
[2016-12-29 04:00] LABS: BUN/CREATININE RATIO 28.57; CALCIUM SERUM 8.6 mg/dL (8.4-10.2); CREATININE SERUM 0.7 mg/dL (0.6-1.4); GLOM FILT RATE Estimated 109.9 mL/min (>60); MAGNESIUM 1.7 mg/dL (1.6-3.0); POTASSIUM 4.2 mmol/L (3.5-5.1)
[2016-12-30 03:46] LABS: BASOPHIL% 0.3 % (0-2.5); EOSINOPHIL# 0.3 X10e3 (0-0.7); EOSINOPHIL% 5.2 % (0.0-7.0); HEMOGLOBIN 11.6 gm/dL (12.0-16.0); LYMPHOCYTE# 2.5 X10e3 (1.0-3.5); MEAN CELL VOLUME 92.2 FL (83-96); MEAN CORPUSCULAR HEMOGLOBIN 30.6 PG (28-34); MEAN CORPUSCULAR HGB CONC 33.1 g/dL (30-36); MEAN PLATELET VOLUME 8.4 FL (6.5-11.5); MONOCYTE# 0.3 X10e3 (0-1.0); MONOCYTE% 5.7 % (3.0-12.0); NEUTROPHIL# 2.8 X10e3 (1.5-7.1); NEUTROPHIL% 46.8 % (40-75); PLATELET COUNT 310 X10e3 (140-420); RED BLOOD COUNT 3.79 X10e (3.90-5.30); WHITE BLOOD COUNT 6.1 X10e3 (4.0-10.5)
[2016-12-30 03:47] LABS: DIFF IND NO
[2016-12-30 04:05] LABS: BUN/CREATININE RATIO 26.25; CALCIUM SERUM 8.4 mg/dL (8.4-10.2); CREATININE SERUM 0.8 mg/dL (0.6-1.4); GLOM FILT RATE Estimated 93.6 mL/min (>60)
[2016-12-30] MEDS ORDERED: DOXYCYCLINE HY100 M3 PO (12:23)
== END 2017-01-01 17:30 | DRG 571 ==
LOC: CED 16:54 → C4C 12-28 01:08 → CEDOF 12-28 01:08 → C4C 12-28 10:06
PROVIDERS: Emergency Medicine; Family Medicine; Internal Medicine; Surgery
PROC: 05H533Z Insertion of Infusion Device into Right Subclavian Vein, Percutaneous Approach (ICD-10-PCS; 2016-12-26)
PROC: B546ZZA Ultrasonography of Right Subclavian Vein, Guidance (ICD-10-PCS; 2016-12-26)
PROC: 0JBD0ZZ Excision of Right Upper Arm Subcutaneous Tissue and Fascia, Open Approach (ICD-10-PCS; principal; 2016-12-28 08:00)
DX: L02.413 Cutaneous abscess of right upper limb (principal); R45.851 Suicidal ideations; F33.2 Major depressive disorder, recurrent severe without psychotic features; F11.20 Opioid dependence, uncomplicated; F15.20 Other stimulant dependence, uncomplicated; Z85.3 Personal history of malignant neoplasm of breast; F90.9 Attention-deficit hyperactivity disorder, unspecified type; Z86.14 Personal history of Methicillin resistant Staphylococcus aureus infection; Z98.51 Tubal ligation status; F17.210 Nicotine dependence, cigarettes, uncomplicated; Z59.0 Homelessness; F41.1 Generalized anxiety disorder
CPT/HCPCS: 36415; 71010; 80048; 80076; 80202; 80307; 82553; 83735; 84443; 84484; 85025; 87040; 87070; 87075; 87076; 87205; 93005; 93971; 96365; 96366; 96375; 99285; J1100; J1885; J2060; J2250; J2270; J2405; J2543; J2765; J3370

== ENCOUNTER 2016-12-31 11:00 | Inpatient (IN) | payer OTHER ==
--- NOTE | ~2016-12-31 | HP ---
Unit #: [id number] #: [id number] Patient: JOHN BRIONES [id number] [place] [address] [id number] I MR#: [id number] NAME: JOHN BRIONES. ROOM: P257 Age: 36 Sex: F Admission Date: 01/01/2017 : 1980 Attending Physician: Mario Cruz M.D. Admitting Physician: Mario Cruz M.D. Primary Care Physician: Michael Espinoza M.D. HISTORY AND PHYSICAL REVISED REPORT (See Addendum) HISTORY OF PRESENT ILLNESS John is a 36 year old admitted to [address] [place] [address] because of her illicit drug use which includes IV heroin. PAST MEDICAL HISTORY 1. Long history of illicit substance abuse to include IV heroin and methamphetamine. 2. Hepatitis C. 3. History of breast cancer. a. The patient reports sites of metastasis. She has been noncompliant with radiation/chemo. PAST SURGICAL HISTORY 1. Cholecystectomy. 2. Tubal ligation. 3. Left mastectomy, 2013. ALLERGIES Sulfa. SOCIAL HISTORY Smokes less than one pack per day. Denies alcohol. Admits to long history of illicit substance abuse to include IV drugs. FAMILY HISTORY Medically noncontributory. REVIEW OF SYSTEMS CONSTITUTIONAL: No fever or chills. HEENT: Denies any sore throat, ear pain or runny nose. CARDIOVASCULAR: Denies chest pain, irregular heart rhythm or palpitations. CHEST: Denies shortness of breath or cough. No hemoptysis. GASTROINTESTINAL: Denies nausea, vomiting, diarrhea or chronic constipation. ENDOCRINE: Denies history of increased thirst or urination. No recent significant weight loss or gain. GENITOURINARY: Denies dysuria, frequency, or hematuria. SKIN: Denies any rashes. HEMATOLOGIC: Denies history of increased bleeding or bruising. Unit #: [id number] #: [id number] Patient: JOHN BRIONES MUSCULOSKELETAL: Denies any hot, swollen joints. No generalized muscle pain. NEUROLOGIC: Denies problems with vision or speech. No frequent, severe headaches. No numbness, tingling or weakness in any extremities. Denies loss of bladder or bowel control. CURRENT MEDICATIONS 1. Detox protocol. 2. Zyprexa 10 mg q.h.s. 3. Doxepin 100 mg q.h.s. 4. Vistaril 50 mg t.i.d. 5. Seroquel 25 mg t.i.d. 6. Milk of Magnesia p.r.n. 7. Maalox p.r.n. 8. Tylenol p.r.n. 9. Naproxen 500 mg b.i.d. 10. Neurontin 600 mg t.i.d. 11. Nicotine patch 14 mg q. day. 12. Doxycycline 100 mg b.i.d. PHYSICAL EXAMINATION GENERAL: Alert, appearing much older than her stated age of 36. No apparent distress. VITAL SIGNS: Blood pressure 140/90, heart rate 80, respirations 16, and temperature 98.6. WEIGHT: 150. HEIGHT: 5 feet 5 inches. SKIN: Warm and dry without rash. She has a significant surgical wound that is healing by secondary intention along the AC area with a smaller second area also healing by secondary intention. Both of these sites are clean. There is no slough noted. HEENT: Normocephalic. TMs not viewed. Oral and nasal passages clear. Conjunctivae clear. PERRLA. EOMs intact. NECK: Supple without lymphadenopathy or thyromegaly. HEART: Regular rate and rhythm without murmur. LUNGS: Clear. ABDOMEN: Soft, nontender. : Not done. EXTREMITIES: No evidence of cyanosis, clubbing or edema. Moves all without focal deficit. NEUROLOGICAL: Grossly within normal limits. Cranial Nerves: II: Visual cannon are intact. III, IV AND : Extraocular movements are intact. Pupils are equal, round and reactive to light. V: Facial sensation is grossly normal. VII: Facial movements and expression are normal. VIII: Auditory acuity grossly intact. IX, X: Uvula is midline. Phonation is normal. XI: Patient shrugs shoulders and turns head normally. XII: Tongue protrudes in the midline. Sensory and Motor Function: Sensory and motor sensation is grossly normal. Motor: moves all extremities well. Coordination: Gait is normal. Deep Tendon Reflexes: Intact. IMPRESSION Psychiatric admission. RECOMMENDATIONS PSYCHIATRIC: Per psychiatrist. Unit #: [id number] #: [id number] Patient: EYLE,JOHN L MEDICAL: 1. I see no contraindication to participate in this facility's activities. 2. Detox per protocol. 3. Continue doxycycline. 4. Healing surgical wounds: Plan will be to keep these areas clean with soap and water. Apply wet-to-dry dressing t.i.d. MEDICAL PROGNOSIS Good. MEDICAL CONDITION Stable. Dictated by... Lucía Chapman P.A.-C. for Rafael Lehman/serena TD: 01/03/2017 07:44 JOB #: [id number] ADDENDUM Revisions and deletions made per instructions on . Dictated by... Lucía Chapman P.A.-C. for Rafael Lehman/serena TD: 01/03/2017 07:51 JOB #: [id number] HISTORY AND PHYSICAL Page 1 of 1 X Lucía Chapman X HISTORY AND PHYSICAL
--- NOTE | ~2016-12-31 | PN ---
Unit #: [id number] #: [id number] Patient: JOHN BRIONES [id number] [facility] [address] [place] [address] [id number] I MR#: [id number] NAME: JOHN BRIONES. ROOM: P257 Age: 36 Sex: F Admission Date: 01/01/2017 : 1980 Attending Physician: Mario Cruz M.D. Admitting Physician: Mario Cruz M.D. Primary Care Physician: Rafael Weinstein PROGRESS NOTES DATE OF SERVICE: 01/04/2017 DISCUSSION Ms. Albright is a 36-year-old female, seen on 01/04/2017. The patient interviewed, chart reviewed, and obtained information from nursing staff. The patient is compliant, cooperative. Mood, sad and dysphoric, flat, withdrawn. REVIEW OF SYSTEMS Complete review of systems unremarkable. MENTAL STATUS EXAMINATION General appearance, the patient dressed casually. Hygiene and grooming, poor. Oriented in place and person. Mood and affect, sad and depressed. Speech, monotone. Thought process, concrete. The patient denied any thoughts of harming self or others, but flat, sad, dysphoric, withdrawn, isolative. Recent and remote memory, poor. Insight and judgment, poor. DIAGNOSES 1. Mood disorder, not otherwise specified. 2. Opioid use disorder, severe. ASSESSMENT AND PLAN Advised to continue with current medication and therapeutic protocol. If needed, consider further adjustment of medication. Dictated by... Rafael Romero/baylee TD: 01/05/2017 18:31 JOB #: [id number] Unit #: [id number] #: [id number] Patient: JOHN BRIONES PROGRESS NOTES Page 1 of 1 X Mario Cruz MD X PROGRESS NOTE
--- NOTE | ~2016-12-31 | CO ---
Unit #: [id number] #: [id number] Patient: JOHN BRIONES [id number] [place] [address] [id number] I MR#: [id number] NAME: JOHN BRIONES. ROOM: P257 Age: 36 Sex: F Admission Date: 01/01/2017 : 1980 Attending Physician: Mario Cruz M.D. Primary Care Physician: Michael Espinoza M.D. Consultation Date: 01/02/2017 CONSULTATION REPORT Bisis wounds as described in her admission H and P, will be cared for with wet-to-dry dressing, changed 3 times a day. She has followup with [facility] in the first week of January. Dictated by... Lucía Chapman P.A.-C. for Rafael Lehman/baylee TD: 01/04/2017 15:47 JOB #: [id number] CONSULTATION REPORT Page 1 of 1 X Lucía Chapman CONSULTATION REPORT
--- NOTE | ~2016-12-31 | PA ---
Unit #: [id number] #: [id number] Patient: [facility] HERNANDEZ [id number] [facility] [address] [place] [address] [id number] I MR#: [id number] NAME: JOHN HERNANDEZ. ROOM: P257 Age: 36 Sex: F Admission Date: 01/01/2017 : 1980 Date of Assessment: 01/02/2017 Attending Physician: Mario Cruz M.D. Admitting Physician: Mario Cruz M.D. Primary Care Physician: Michael Espinoza M.D. PSYCHIATRIC ASSESSMENT INFORMANTS The patient reliability, fair informant and chart reliability, good. CHIEF COMPLAINT Depression. HISTORY OF PRESENT ILLNESS Ms. John Hernandez is a 36-year-old white female admitted with the above-mentioned complaint. The patient reported that she has cancer, currently homeless, feels hopeless, worthless, sad, depressed, and wanted to kill herself, has no plan. The patient reported that she has active MRSA open wound that needs to be dressed due to abscess. The patient reported tobacco use, age of onset 13; marijuana, age of onset 13; opioid, age of onset 18; and amphetamine, age of onset 22. The patient reported longest period of sobriety 200 days, last period of sobriety in 09/2016. The patient relapsed in September after 200 days of sobriety. Reported history of blackouts, hepatitis, withdrawal symptom, and IV drug use. Reported irritability, anxiety, and diarrhea symptoms. Needing inpatient admission at this time for psychiatric stabilization. PAST PSYCHIATRIC HISTORY Remarkable for history of previous treatment inpatient psych at [facility] . FAMILY HISTORY AND SOCIAL HISTORY The patient has a good support system from her mother, but currently homeless. No known history of any abuse. MEDICAL HISTORY Remarkable for history of right upper extremity abscess, status post I and D; intravenous drug abuse; and history of breast cancer. Musculoskeletal; muscle strength and tone, no atrophy or abnormal movement. Gait normal. MEDICATION HISTORY The patient is on doxycycline 100 mg b.i.d. ALLERGIES No known drug allergies. SUBSTANCE ABUSE HISTORY Please see above. REVIEW OF SYSTEMS Unit #: [id number] #: [id number] Patient: JOHN HERNANDEZ HEENT: Eyes, clear. Ears, nose, mouth, and throat; clear. CARDIOVASCULAR: Unremarkable. RESPIRATORY: Unremarkable. GI: Unremarkable. : Unremarkable. SKIN: Unremarkable. LYMPH NODE: Unremarkable. NEUROLOGIC: Unremarkable. ENDOCRINE: Unremarkable. HEMATOLOGIC: Unremarkable. ALLERGIC/IMMUNOLOGIC: Unremarkable. MUSCULOSKELETAL: Muscle strength and tone, no atrophy or abnormal movement. Gait normal. MENTAL STATUS EXAMINATION CONSTITUTIONAL: Measurement of vital signs; temperature 97.9, pulse 97, respirations 16, and oxygen saturation 98%. Height 5 feet and 5 inches and weight 150 pounds. GENERAL APPEARANCE: The patient dressed casually. The patient did not show any facial deformity. Noticed bandage on both arms. MUSCULOSKELETAL: Please see above. PSYCHIATRIC EXAMINATION Description of speech; regular rate, normal volume, normal articulation, and coherent. Description of thought process, goal directed. Description of association, intact. Description of abnormal psychotic thinking, the patient denied any hallucinations or delusions. Mood lability. No suicidal ideation. Substance abuse. Description of the patient's judgment: Concerning everyday activity, poor. Social situation, poor. Concerning psychiatric condition, poor. Complete mental status examination; oriented in time, place, and person. Recent and remote memory, fair. Attention span and concentration, fair. Language, able to name object and repeat phrases. Fund of knowledge, aware of current event and passive vocabulary intact. Mood and affect, sad and dysphoric. Insight and judgment, fair to poor. ASSETS AND LIABILITIES Assets, the patient is articulate and able to take care of her ADL. Liability, history of substance abuse and depression. ADMITTING DIAGNOSES Psychiatric: Major depressive disorder, recurrent, severe, F33.2; opioid use disorder, severe, F11.20; and amphetamine use disorder, moderate to severe, F15.20. Secondary diagnosis: Deferred. Medical diagnoses: History of methicillin-resistant Staphylococcus aureus infection, recent incision and drainage for abscess, history of breast cancer, and hepatitis C. Stressors: Psychosocial stressors. PSYCHIATRIC PLAN AND TREATMENT GOAL AND DISCHARGE PLAN 1. Advised to admit the patient on the inpatient unit. Provide safe, supportive, and structured environment. 2. Ordered labs; CBC, CMP, UA, and UDS. Unit #: [id number] #: [id number] Patient: JOHN HERNANDEZ 3. Precaution for aggression and self-harm. 4. Detox protocol and detox monitoring. 5. The patient to attend all the programing on the inpatient unit including group therapy, individual therapy, family therapy, and chemical dependency group. Recommending at this time to start the patient on Zyprexa 10 mg at bedtime, doxepin 100 mg at bedtime, Vistaril 50 mg t.i.d., and Seroquel 25 mg t.i.d. We will closely monitor. If needed, consider further adjustment of medication. Plan to take her off from Seroquel. TREATMENT GOAL To attain euthymic mood, gain insight into her problem, and learn coping skills. DISCHARGE PLAN Plan to stabilize the patient and consider followup in outpatient program ESTIMATED LENGTH OF STAY 5 days. Dictated by... Rafael Romero/baylee TD: 01/02/2017 20:23 JOB #: [id number] PSYCHIATRIC ASSESSMENT Page 1 of 1 X Mario Cruz MD X PSYCHIATRIC ASSESSMENT
--- NOTE | ~2016-12-31 | PN ---
Unit #: [id number] #: [id number] Patient: JOHN BRIONES [id number] [facility] [address] [place] [address] [id number] I MR#: [id number] NAME: JOHN BRIONES. ROOM: [facility] Age: 36 Sex: F Admission Date: 01/01/2017 : 1980 Attending Physician: Mario Cruz M.D. Admitting Physician: Mario Cruz M.D. Primary Care Physician: Rafael Weinstein PROGRESS NOTES DATE 01/06/2017 DISCUSSION Ms. Albright is a 36-year-old female seen on 01/06/2017. The patient interviewed, chart reviewed. Obtained information from nursing staff. The patient tolerating medication fairly well (1)____ seclusive, isolative, flat affect guarded tolerating medication fairly well. Complete review of systems unremarkable. MENTAL STATUS EXAMINATION General appearance, the patient dressed casually. Attention span and concentration fair. Oriented to place and person. Mood and affect sad, depressed. Speech monotone. Thought process concrete. The patient denied any thoughts of harming self or others. Denied any psychotic symptoms. Recent and remote memory poor. Insight and judgement poor. DIAGNOSES 1. Mood disorder NOS 2. Opioid use disorder severe ASSESSMENT/PLAN Advise to continue with current medication and therapeutic protocol. If needed consider further adjustment of medication. Dictated by... Rafael Romero/dalton TD: 01/07/2017 23:19 JOB #: [id number] Unit #: [id number] #: [id number] Patient: JOHN BRIONES PROGRESS NOTES Page 1 of 1 X Mario Cruz MD X PROGRESS NOTE
--- NOTE | ~2016-12-31 | PN ---
Unit #: [id number] #: [id number] Patient: JOHN BRIONES [id number] [facility] [address] [place] [address] [id number] MR#: [id number] NAME: JOHN BRIONES. ROOM: P257 Age: 36 Sex: F Admission Date: 01/01/2017 : 1980 Attending Physician: Mario Cruz M.D. Admitting Physician: Mario Cruz M.D. Primary Care Physician: Rafael Weinstein PROGRESS NOTES DATE 01/06/2017 DISCUSSION Ms. Albright is a 36-year-old female seen on 01/05/2017. The patient interviewed, chart reviewed. Obtained information from nursing staff. The patient seclusive, isolative, flat affect, sad, dysphoric mood but able to maintain safe behavior. The patient reports mood is better, decreased in anxiety. Vital signs 98.4, 91, 20, 133/105. Complete review of systems unremarkable. MENTAL STATUS EXAMINATION General appearance, the patient dressed casually. Attention span and concentration fair. Oriented to place and person. Mood and affect sad, depressed. Speech monotone. Thought process concrete. The patient denied any thoughts of harming self or others but guarded. Recent and remote memory poor. Insight and judgement poor. DIAGNOSES Mood disorder NOS Opioid use disorder severe ASSESSMENT/PLAN Advise to continue with current medication and therapeutic protocol. If needed consider further adjustment of medication. Dictated by... Rafael Romero/dalton TD: 01/06/2017 13:14 JOB #: [id number] Unit #: [id number] #: [id number] Patient: JOHN BRIONES PROGRESS NOTES Page 1 of 1 X Mario Cruz MD X PROGRESS NOTE
--- NOTE | ~2016-12-31 | PN ---
Unit #: [id number] #: [id number] Patient: JOHN BRIONES [id number] [facility] [address] [place] [address] [id number] MR#: [id number] NAME: JOHN BRIONES. ROOM: P257 Age: 36 Sex: F Admission Date: 01/01/2017 : 1980 Attending Physician: Mario Cruz M.D. Admitting Physician: Mario Cruz M.D. Primary Care Physician: Rafael Weinstein PROGRESS NOTES DATE 01/03/2017 DISCUSSION Ms. Albright is a 36-year-old female seen on 01/03/2017. Patient interviewed. Chart reviewed. Obtained information from nursing staff. Patient's mood sad, dysphoric, flat affect, guarded, withdrawn, isolative. Patient still having a lot of anxiety, sad, depressed mood. Complete review of system unremarkable. MENTAL STATUS EXAMINATION General appearance, patient dressed casually. Attention span, concentration fair. Oriented in place and person. Mood and affect sad, depressed, flat affect. Speech monotone. Thought process concrete. Patient reported still having suicidal ideation, flat, sad, dysphoric mood. Denied any hallucinations. Recent and remote memory poor. Insight and judgement poor. DIAGNOSES 1. Mood disorder NOS. 2. History of opiate use disorder. ASSESSMENT/PLAN Advised to continue with current medication and therapeutic protocol. If needed, consider further adjustment of medication. Patient is currently on Zyprexa, doxepin, Vistaril, Seroquel combination. Dictated by... Rafael Romero/alan TD: 01/04/2017 20:41 JOB #: [id number] Unit #: [id number] #: [id number] Patient: JOHN BRIONESSAHRA PROGRESS NOTES Page 1 of 1 X Mario Cruz MD PROGRESS NOTE
--- NOTE | ~2016-12-31 | HP ---
Unit #: [id number] #: [id number] Patient: JOHN BRIONES [id number] [place] [address] [id number] MR#: [id number] NAME: JOHN BRIONES. ROOM: P257 Age: 36 Sex: F Admission Date: 01/01/2017 : 1980 Attending Physician: Mario Cruz M.D. Admitting Physician: Mario Cruz M.D. Primary Care Physician: Michael Espinoza M.D. HISTORY AND PHYSICAL HISTORY OF PRESENT ILLNESS John is a 36 year old admitted to [address] [place] [address] because of her illicit drug use which includes IV heroin. PAST MEDICAL HISTORY 1. Long history of illicit substance abuse to include IV heroin and methamphetamine. 2. Hepatitis C. 3. History of breast cancer. a. The patient reports sites of metastasis. She has been noncompliant with radiation/chemo. PAST SURGICAL HISTORY 1. Cholecystectomy. 2. Tubal ligation. 3. Left mastectomy, 2013. ALLERGIES Sulfa. SOCIAL HISTORY Smokes less than one pack per day. Denies alcohol. Admits to long history of illicit substance abuse to include IV drugs. FAMILY HISTORY Medically noncontributory. REVIEW OF SYSTEMS CONSTITUTIONAL: No fever or chills. HEENT: Denies any sore throat, ear pain or runny nose. CARDIOVASCULAR: Denies chest pain, irregular heart rhythm or palpitations. CHEST: Denies shortness of breath or cough. No hemoptysis. GASTROINTESTINAL: Denies nausea, vomiting, diarrhea or chronic constipation. ENDOCRINE: Denies history of increased thirst or urination. No recent significant weight loss or gain. GENITOURINARY: Denies dysuria, frequency, or hematuria. SKIN: Denies any rashes. HEMATOLOGIC: Denies history of increased bleeding or bruising. MUSCULOSKELETAL: Denies any hot, swollen joints. No generalized muscle pain. NEUROLOGIC: Denies problems with vision or speech. No frequent, severe headaches. No numbness, tingling or weakness in any extremities. Denies Unit #: [id number] #: [id number] Patient: JOHN BRIONES loss of bladder or bowel control. CURRENT MEDICATIONS 1. Detox protocol. 2. Zyprexa 10 mg q.h.s. 3. Doxepin 100 mg q.h.s. 4. Vistaril 50 mg t.i.d. 5. Seroquel 25 mg t.i.d. 6. Milk of Magnesia p.r.n. 7. Maalox p.r.n. 8. Tylenol p.r.n. 9. Naproxen 500 mg b.i.d. 10. Neurontin 600 mg t.i.d. 11. Nicotine patch 14 mg q. day. 12. Doxycycline 100 mg b.i.d. PHYSICAL EXAMINATION GENERAL: Alert, appearing much older than her stated age of 36. No apparent distress. VITAL SIGNS: Blood pressure 140/90, heart rate 80, respirations 16, and temperature 98.6. WEIGHT: 150. HEIGHT: 5 feet 5 inches. SKIN: Warm and dry without rash or lesion. HEENT: Normocephalic. TMs not viewed. Oral and nasal passages clear. Conjunctivae clear. PERRLA. EOMs intact. NECK: Supple without lymphadenopathy or thyromegaly. HEART: Regular rate and rhythm without murmur. LUNGS: Clear. ABDOMEN: Soft, nontender. : Not done. EXTREMITIES: No evidence of cyanosis, clubbing or edema. Moves all without focal deficit. NEUROLOGICAL: Grossly within normal limits. Cranial Nerves: II: Visual cannon are intact. III, IV AND : Extraocular movements are intact. Pupils are equal, round and reactive to light. V: Facial sensation is grossly normal. VII: Facial movements and expression are normal. VIII: Auditory acuity grossly intact. IX, X: Uvula is midline. Phonation is normal. XI: Patient shrugs shoulders and turns head normally. XII: Tongue protrudes in the midline. Sensory and Motor Function: Sensory and motor sensation is grossly normal. Motor: moves all extremities well. Coordination: Gait is normal. Deep Tendon Reflexes: Intact. IMPRESSION Psychiatric admission. RECOMMENDATIONS PSYCHIATRIC: Per psychiatrist. MEDICAL: 1. I see no contraindication to participate in this facility's activities. 2. Detox per protocol. 3. Continue doxycycline. MEDICAL PROGNOSIS Unit #: [id number] #: [id number] Patient: JOHN BRIONES Good. MEDICAL CONDITION Stable. Dictated by... Maribeth SkinnerC. for Rafael Lehman/serena TD: 01/03/2017 07:44 JOB #: [id number] HISTORY AND PHYSICAL Page 1 of 1 X Lucía Chapman X HISTORY AND PHYSICAL
--- NOTE | ~2016-12-31 | DS ---
Unit #: [id number] #: [id number] Patient: JOHN BRIONES [id number] [place] [address] [id number] I MR#: [id number] NAME: JOHN BRIONES. ROOM: 66 Age: 36 Sex: F Admission Date: 01/01/2017 : 1980 Discharge Date: 01/07/2017 Attending Physician: Mario Cruz M.D. Primary Care Physician: Michael Espinoza M.D. DISCHARGE SUMMARY REASON FOR ADMISSION Depression, substance abuse. DIAGNOSTIC STUDIES LABORATORY RESULTS: Unremarkable. HOSPITAL COURSE The patient was admitted to inpatient unit on 01/01/2017 and discharged on 01/07/2017. The patient was treated on the inpatient unit with group therapy, individual therapy, medication management. The patient responded well with the above modalities of treatment. Subsequently, the patient was discharged with a plan to follow up in outpatient program. DISCHARGE MEDICATIONS Neurontin 600 mg t.i.d. for pain, Vistaril 50 mg t.i.d. for anxiety, Sinequan 100 mg at bedtime for sleep, Zyprexa 10 mg at bedtime for mood stabilization. DISCHARGE DIAGNOSES Psychiatric: Major depressive disorder, recurrent, severe, F33.2; opioid use disorder, severe, F11.20; amphetamine use disorder, moderate to severe, F15.20. Secondary diagnosis: Deferred. Medical diagnosis: History of methicillin-resistant Staphylococcus aureus infection, incision and drainage of abscess, history of breast cancer, history of hepatitis C. Stressors: Psychosocial stressors. DISCHARGE INSTRUCTIONS The patient to follow up in outpatient clinic as per social media marketing specialist. CONDITION ON DISCHARGE The patient was pleasant and cooperative. Denied any psychotic symptom or any suicidal ideation. PROGNOSIS Guarded. DIET AND ACTIVITY As tolerated. Unit #: [id number] #: [id number] Patient: JOHN BRIONES Dictated by... Mario Cruz M.D. SZC/leninl TD: 01/07/2017 23:02 JOB #: [id number] DISCHARGE SUMMARY Page 1 of 1 X Mario Cruz MD DISCHARGE SUMMARY
[~2016-12-31 11:00] MED LIST changes: +DOXYCYCLINE HY100 M3 PO
[2017-01-02 09:56] LABS: URINE APPEARANCE TURBID; URINE BILIRUBIN NEG (NEG); URINE BLOOD 2+ (NEG); URINE COLOR YELLOW; URINE GLUCOSE NEG (NEG); URINE KETONE NEG (NEG); URINE LEUKOCYTE ESTERASE 3+ (NEG); URINE NITRATE NEG (NEG); URINE PROTEIN 1+ (NEG); URINE SPECIFIC GRAVITY 1.025 (1.003-1.035)
[2017-01-02 10:02] LABS: URINE BACTERIA AUWI NEG (NEGATIVE); URINE SQUAMOUS EPITHELIAL CELL MANY /[HPF]; UWBCS1 AUWI INNUM (0-5)
[2017-01-02 11:55] LABS: AMPHETAMINE POS (NEG); BARBITURATES NEG (NEG); BENZODIAZEPINES NEG (NEG); COCAINE NEG (NEG); MARIJUANA NEG (NEG); OPIATES POS (NEG); TRICYCLIC ANTIDEPRESSANTS NEG (NEG); U METHADONE NEG (NEG)
== END 2017-01-07 11:30 | disposition home or self-care (01) | DRG 885 ==
LOC: P2L 01-01 17:32
PROVIDERS: Psychiatry & Neurology Psychiatry
PROC: HZ2ZZZZ Detoxification Services for Substance Abuse Treatment (ICD-10-PCS; principal; 2017-01-01)
DX: F33.2 Major depressive disorder, recurrent severe without psychotic features (principal); F11.20 Opioid dependence, uncomplicated; F15.20 Other stimulant dependence, uncomplicated; Z86.14 Personal history of Methicillin resistant Staphylococcus aureus infection; B19.20 Unspecified viral hepatitis C without hepatic coma; F17.210 Nicotine dependence, cigarettes, uncomplicated; Z88.2 Allergy status to sulfonamides; F39 Unspecified mood [affective] disorder
CPT/HCPCS: 80307; 81003

== ENCOUNTER 2017-01-18 17:37 | Emergency (ER) | payer OTHER ==
--- NOTE | ~2017-01-18 | CR72 ---
[facility] A Service of [facility] RADIOLOGY TEXT RESULTS PATIENT: JOHN BRIONES LOCATION: [facility] : [birth year] UNIT #: [id number] AGE: [address]: Seda Sinha MD SEX: F ORDER DR: [id number] [facility] [address] [place], [place] [address] [id number] MR#: [id number] Acc #: [id number] NAME: JOHN BRIONES : 1980 SEX: F STUDY DATE/TIME: 01/18/2017 17:54 UNIT: [facility] ROOM: STUDY DESCRIPTION: CR Chest Single View Portable Attending Physician: Seda Sinha M.D. Ordering Physician: Diego Bunn M.D. Primary Care Physician: Michael Espinoza M.D. MEDICAL IMAGING REPORT This report is preliminary unless electronic signature is present EXAM Portable chest 1 view date of study 01/18/2017 COMPARISON None HISTORY Chest pain and short of air for 2 days, pain, left-sided FINDINGS Redemonstrated slightly increased interstitial infiltrates, no consolidation or effusion or pneumothorax. Dictated by... Derrick Bazan M.D. THIS IS AN ELECTRONICALLY VERIFIED REPORT Derrick Bazan M.D. at 01/28/2017 4:00 PM TEV/rnr TD: 01/19/2017 00:44 JOB #: [id number] MEDICAL IMAGING REPORT Page 1 of 1 COPY
--- NOTE | ~2017-01-18 | EKG ---
PATIENT: JOHN BRIONES UNIT #: [id number] Ventricular Rate: 72 BPM Atrial Rate: 72 BPM P-R Interval: 118 ms QRS Duration: 110 ms Q-T Interval: 410 ms QTC Calculation(Bezet): 448 ms P Troy: 66 degrees Calculated R Troy: 69 degrees Calculated T Troy: 78 degrees Diagnosis Line: Normal sinus rhythm Diagnosis Line: Cannot rule out Anterior infarct , age Diagnosis Line: undetermined Diagnosis Line: Abnormal ECG Diagnosis Line: When compared with ECG of 27-DEC-2016 19:33, Diagnosis Line: No significant change was found Diagnosis Line: Confirmed by CARLOS A PAYNE MD ([id number]) on Diagnosis Line: 01/21/2017 4:42:05 PM INTERPRETING MD: KERRY ROGERS
--- NOTE | ~2017-01-18 | CT16 ---
[facility] A Service of [facility] RADIOLOGY TEXT RESULTS PATIENT: JOHN BRIONES LOCATION: [facility] : 78 UNIT #: [id number] AGE: [address]: Seda Sihna MD SEX: F ORDER DR: [id number] [facility] [address] [place], [place] [address] [id number] MR#: [id number] Acc #: [id number] NAME: JOHN BRIONES. : 1980 SEX: F STUDY DATE/TIME: 01/18/2017 21:18 UNIT: [facility] ROOM: STUDY DESCRIPTION: CT Angio Chest for PE Attending Physician: Seda Sinha M.D. Ordering Physician: Seda Sinha M.D. Primary Care Physician: Michael Espinoza M.D. MEDICAL IMAGING REPORT This report is preliminary unless electronic signature is present EXAM Chest CT angiogram with contrast 01/18/2017 PROCEDURE Axial contrast enhanced chest CT angiogram with 3-dimensional reformats. This CT exam was performed with one or more of the following radiation dose reduction techniques: automatic exposure control, adjustment of mA and/or kV according to patient size, and iterative reconstruction. COMPARISON None HISTORY History of metastatic breast cancer. Chest pain and short of air for one day. FINDINGS There are multiple pulmonary metastatic lesions throughout both lungs. However, there is no consolidation or pneumothorax. There is a very tiny right pleural effusion. Images of the upper abdomen show no acute abnormality. There are bilateral hilar and mediastinal lymph nodes, moderately extensive, but bolus timing is good and there is no convincing evidence of pulmonary embolism. The thoracic aorta is normal. The bony structures are normal. IMPRESSION There is extensive pulmonary metastatic disease, but there is no consolidation or effusion or pneumothorax. There is hilar no active disease mediastinal adenopathy, but there is no evidence of pulmonary embolism. Bolus timing is good. The thoracic aorta is normal. [facility] A Service of [facility] RADIOLOGY TEXT RESULTS PATIENT: JOHN BRIONES LOCATION: [facility] : 76 UNIT #: [id number] AGE: [address]: Seda Sinha MD SEX: F ORDER DR: No bony abnormality is seen. Dictated by... Derrick Bazan M.D. THIS IS AN ELECTRONICALLY VERIFIED REPORT Derrick Bazan M.D. at 01/28/2017 4:01 PM TEV/to TD: 01/19/2017 09:08 JOB #: [id number] MEDICAL IMAGING REPORT Page 1 of 1 COPY
[2017-01-18 18:41] LABS: BASOPHIL% 0.2 % (0-2.5); EOSINOPHIL# 0.1 X10e3 (0-0.7); EOSINOPHIL% 1.4 % (0.0-7.0); HEMATOCRIT 38.2 % (35.0-45.0); HEMOGLOBIN 12.8 gm/dL (12.0-16.0); LYMPHOCYTE# 2.3 X10e3 (1.0-3.5); LYMPHOCYTE% 34.9 % (17.0-45.0); MEAN CELL VOLUME 92.3 FL (83-96); MEAN CORPUSCULAR HEMOGLOBIN 30.9 PG (28-34); MEAN CORPUSCULAR HGB CONC 33.4 g/dL (30-36); MEAN PLATELET VOLUME 8.1 FL (6.5-11.5); MONOCYTE# 0.4 X10e3 (0-1.0); MONOCYTE% 6.1 % (3.0-12.0); NEUTROPHIL# 3.8 X10e3 (1.5-7.1); NEUTROPHIL% 57.4 % (40-75); PLATELET COUNT 302 X10e3 (140-420); RED BLOOD COUNT 4.14 X10e (3.90-5.30); RED CELL DISTRIBUTION WIDTH 14.3 % (11.0-15.5); WHITE BLOOD COUNT 6.7 X10e3 (4.0-10.5)
[2017-01-18 18:42] LABS: DIFF IND NO
[2017-01-18 18:43] LABS: POC - CKMB <1.0 ng/mL (0.0-7.9); POC - TROPONIN <0.05 ng/mL (<=0.05)
[2017-01-18 18:50] LABS: PARTIAL THROMBOPLASTIN TIME 30.1 SECONDS (23.5-31.3); PROTHROMBIN TIME (PATIENT) 10.7 SECONDS (9.6-11.5)
[2017-01-18 19:01] LABS: ALBUMIN SERUM 3.6 g/dL (3.5-5.0); ALKALINE PHOSPHATASE 93 U/L (32-92); ALT (SGPT) 28 U/L (10-40); AST (SGOT) 21 U/L (10-42); BILIRUBIN, DIRECT <0.1 mg/dL (0.0-0.2); BILIRUBIN,INDIRECT 0.2 mg/dL (0.0-0.9); BILIRUBIN,TOTAL 0.3 mg/dL (0.2-2.0); BLOOD UREA NITROGEN 16 mg/dL (9-23); BUN/CREATININE RATIO 26.66; CALCIUM SERUM 9.2 mg/dL (8.4-10.2); CARBON DIOXIDE 25 mmol/L (22-31); CHLORIDE 103 mmol/L (100-111); CREATININE SERUM 0.6 mg/dL (0.6-1.4); GLOM FILT RATE Estimated 115.6 mL/min (>60); GLUCOSE FASTING 101 mg/dL (70-110); POTASSIUM 4.1 mmol/L (3.5-5.1); PROTEIN TOTAL SERUM 7.7 g/dL (6.0-8.3); SODIUM 136 mmol/L (135-145)
[2017-01-18 20:37] LABS: URINE SOURCE CLEAN CATCH
[2017-01-18 20:51] LABS: URINE APPEARANCE CLEAR; URINE BILIRUBIN NEG (NEG); URINE BLOOD NEG (NEG); URINE COLOR YELLOW; URINE GLUCOSE NEG (NEG); URINE KETONE NEG (NEG); URINE LEUKOCYTE ESTERASE 1+ (NEG); URINE NITRATE NEG (NEG); URINE PH 7.5 (5-8); URINE PROTEIN NEG (NEG); URINE SPECIFIC GRAVITY 1.023 (1.003-1.035)
[2017-01-18 20:53] LABS: CULTURE INDICATED? YES; URBCS1 AUWI 0-2 /[HPF] (0-2); URINE BACTERIA AUWI 1+ (NEGATIVE); URINE SQUAMOUS EPITHELIAL CELL FEW /[HPF]
[2017-01-18 20:59] LABS: AMPHETAMINE NEG (NEG); BARBITURATES NEG (NEG); BENZODIAZEPINES NEG (NEG); COCAINE NEG (NEG); MARIJUANA POS (NEG); OPIATES POS (NEG); TRICYCLIC ANTIDEPRESSANTS NEG (NEG); U METHADONE NEG (NEG)
== END 2017-01-18 22:46 | disposition home or self-care (01) ==
LOC: CED 17:37
PROVIDERS: Student in an Organized Health Care Education/Training Program
DX: L03.113 Cellulitis of right upper limb (principal); I10 Essential (primary) hypertension; Z76.5 Malingerer [conscious simulation]; F19.10 Other psychoactive substance abuse, uncomplicated; F17.200 Nicotine dependence, unspecified, uncomplicated; Z98.890 Other specified postprocedural states
CPT/HCPCS: 36415; 71010; 71275; 80048; 80076; 80307; 81003; 82553; 84484; 84703; 85025; 85610; 85730; 87086; 93005; 96374; 99285; J1885; Q9967

== ENCOUNTER 2017-01-31 13:29 | Inpatient (IN) | payer OTHER ==
--- NOTE | ~2017-01-31 | CO ---
Unit #: [id number] #: [id number] Patient: JOHN BRIONES [id number] [address] [address] [id number] I MR#: [id number] NAME: JOHN BRIONES. ROOM: 463 Age: 36 Sex: F Admission Date: 01/31/2017 : 1980 Attending Physician: Homero Mendoza M.D. Primary Care Physician: Primary Care Physician No Consultation Date: 02/01/2017 CONSULTATION REPORT CONSULTING PHYSICIAN Dr. Elizabeth. PRIMARY REASON FOR CONSULTATION Right arm abscesses. HISTORY OF PRESENT ILLNESS The patient is a 36-year-old woman, who was admitted through the emergency room with an unintentional heroin overdose with altered mental status. She does have a history of long-term IV drug abuse. She has had arm abscesses in the past from IV drug abuse as well, which have been lanced and drained. PAST MEDICAL HISTORY As above. She also has a history of IV drug abuse, MRSA endocarditis, breast cancer, depression, tubal ligation, and left mastectomy. MEDICATIONS See her MAR. ALLERGIES She is allergic to sulfa. SOCIAL HISTORY She is homeless. She smokes cigarettes. She uses IV drugs daily including heroin. She denies alcohol use. FAMILY HISTORY Noncontributory. REVIEW OF SYSTEMS A 10-point review is performed. This is negative other than what was already listed in the history of present illness. PHYSICAL EXAMINATION GENERAL: She is alert, in no apparent distress. VITAL SIGNS: Temperature 97.2, pulse 81, respirations 16, blood pressure 141/65. She is 100% saturated on room air. HEENT: Pupils are equal and round. Extraocular motions are intact. NECK: Supple without adenopathy. HEART: Regular rate and rhythm. LUNGS: Clear to auscultation anteriorly. ABDOMEN: Soft, benign, nontender, nondistended. EXTREMITIES: Negative for clubbing, cyanosis, or edema; however, in the Unit #: [id number] #: [id number] Patient: JOHN BRIONES right upper arm, there was a 3 cm area of induration and mild fluctuance with surrounding erythema. In the forearm, there was a second area also 3 cm in diameter induration with overlying cellulitis. NEUROLOGIC: Negative focal sensory or motor deficits. SKIN: Warm and dry. DIAGNOSTIC STUDIES LABORATORY RESULTS: Significant for BUN of 15, creatinine 0.6. Electrolytes are within normal limits. White blood cell count 8.6, hemoglobin 12.2. ASSESSMENT AND PLAN The patient with resolving abscesses from IV drug abuse of the right arm. I have discussed incision and drainage in the operating room today. She is agreeable. Dictated by... Matt Trammell M.D. LANCE/baylee TD: 02/01/2017 18:34 JOB #: [id number] CONSULTATION REPORT Page 1 of 1 X Matt Trammell CONSULTATION REPORT
--- NOTE | ~2017-01-31 | DS ---
Unit #: [id number] #: [id number] Patient: JOHN BRIONES [id number] [address] [place], [place] [address] [id number] MR#: [id number] NAME: JOHN BRIONES. ROOM: 463 Age: 36 Sex: F Admission Date: 01/31/2017 : 1980 Discharge Date: 02/03/2017 Attending Physician: Homero Mendoza M.D. Primary Care Physician: No Primary Care Physician DISCHARGE SUMMARY DISCHARGE DIAGNOSES 1. Right upper extremity cellulitis with abscess. 2. Heroin overdose. HOSPITAL COURSE The patient is a 36-year-old female who presented to [facility] secondary to being somewhat obtunded after some heroin use. While being evaluated, the patient was noted to have some red areas involving her right upper extremity. She was started on IV vancomycin and surgical consult was placed. Patient was taken to the operating room and underwent I and D of right upper arm abscess and right forearm abscess. Cultures ultimately grew E. coli and her antibiotics were switched from vancomycin to Rocephin. Now, at the time of discharge, susceptibilities revealed the bacteria is susceptible to Bactrim and Rocephin. As a result, the patient is being discharged on Omnicef. CURRENT MEDICATIONS 1. Neurontin 600 mg p.o. t.i.d. 2. Desyrel 100 mg p.o. q.h.s. 3. Ultram 50 mg p.o. daily as needed for pain. 4. Omnicef 600 mg p.o. daily x8 days. FOLLOWUP Patient should follow up with [facility] in one week. Dictated by... Homero Mendoza M.D. MANDY/venkatesh TD: 02/06/2017 08:13 JOB #: [id number] Unit #: [id number] #: [id number] Patient: JOHN BRIONES DISCHARGE SUMMARY Page 1 of 1 X Homero Mendoza MD DISCHARGE SUMMARY
--- NOTE | ~2017-01-31 | HP ---
Unit #: [id number] #: [id number] Patient: JOHN BRIONES [id number] [address] [address] [id number] MR#: [id number] NAME: JOHN BRIONES. ROOM: 08188 Age: 36 Sex: F Admission Date: 01/31/2017 : 1980 Attending Physician: Emelyn Elizabeth M.D. Primary Care Physician: Primary Care Physician No HISTORY AND PHYSICAL CHIEF COMPLAINT Heroin overdose. HISTORY OF PRESENT ILLNESS The patient is a 36-year-old female with past medical history of IV drug use, MRSA, endocarditis, breast cancer, depression, who presented to the emergency department for evaluation of the above. The patient used heroin. She received Narcan prior to arrival. She denies any suicidal ideations. During the course of her evaluation in the emergency department, she was noted to have red areas involving the right upper extremity. She states that she has injected in those areas. They have become increasingly red, swollen and painful. She was given vancomycin in the emergency department as well as Tdap and a 2 liter normal saline bolus. She is being admitted to [facility] for evaluation and further treatment. PAST MEDICAL HISTORY 1. Admission to [facility] 12/28 through 12/31/2016 for right upper extremity abscesses. She underwent I and D during that admission. She was also seen in consultation by Psychiatry. The plan, per the discharge summary, [facility]. 2. History of MRSA. 3. History of endocarditis. 4. Breast cancer. 5. Depression. PAST SURGICAL HISTORY 1. Tubal ligation. 2. Left mastectomy. ALLERGIES Sulfa. HOME MEDICATIONS None. SOCIAL HISTORY The patient is homeless. She smokes cigarettes. She uses IV drugs daily including heroin. She denies alcohol use. FAMILY HISTORY Negative for coronary artery disease. Unit #: [id number] #: [id number] Patient: JOHN BRIONES REVIEW OF SYSTEMS A complete review of systems is negative except as indicated in the HPI. PHYSICAL EXAMINATION VITAL SIGNS: Temperature 97.2, pulse 81, respirations 16, blood pressure 141/65, oxygen saturation 100% on room air. GENERAL: The patient is a female who is sleeping but wakes to voice. HEENT: Head is atraumatic. Mucous membranes are moist. NECK: Supple. Trachea is midline. LUNGS: Clear to auscultation bilaterally with no increased work of breathing. HEART: Regular rate and rhythm. ABDOMEN: Soft, nontender. Bowel sounds present in all four quadrants. EXTREMITIES: No pedal edema. Right upper extremity demonstrates two areas consistent with abscess, one is on the arm, the other is on the forearm. They are erythematous, warm, and tender to palpation. She has multiple track morales on the upper extremities. NEUROLOGIC: Patient is oriented x3. She follows commands. She is moving all extremities. PSYCHIATRIC: Patient has a flat affect. She demonstrates poor insight and judgment. SKIN: Demonstrates the previously described abnormalities. DIAGNOSTIC STUDIES LABORATORY: Complete blood count is completely normal. Comprehensive metabolic panel notable for a sodium 131, alkaline phosphatase 94. ASSESSMENT The patient is a 36-year-old female with: 1. Altered mental status, resolved. 2. Heroin overdose, unintentional. The patient received Narcan prior to arrival. 3. Right upper extremity abscesses. 4. History of MRSA. 5. IV drug use. 6. History of endocarditis. 7. History of breast cancer. 8. Depression. 9. Tobacco abuse. PLAN 1. Admit to med-surg. 2. Healthy-heart diet. 3. N.p.o. after midnight. 4. Blood cultures x2. 5. Vancomycin IV with Pharmacy to dose. 6. Consult [facility] regarding right upper extremity abscesses. 7. Neuro checks. 8. Hepatitis panel and HIV. 9. technical support managerdepot manager consult regarding IV drug use. 10. P.r.n. Toradol. 11. P.r.n. Zofran. 12. SCDs for DVT prophylaxis. 13. Additional workup and consultants based on above. Unit #: [id number] #: [id number] Patient: JOHN BRIONES Dictated by Emelyn Elizabeth M.D. SHERYL/manoj TD: 01/31/2017 20:07 JOB #: [id number] HISTORY AND PHYSICAL Page 1 of 1 X Emelyn Elizabeth MD X HISTORY AND PHYSICAL
--- NOTE | ~2017-01-31 | OR ---
Unit #: [id number] #: [id number] Patient: JOHN BRIONES [id number] [address] [address] [id number] I MR#: [id number] NAME: JOHN BRIONES. ROOM: 463 Date of Procedure: 02/01/2017 Admission Date: 01/31/2017 Surgeon: Matt Trammell M.D. : 1980 Attending Physician: Homero Mendoza M.D. Primary Care Physician: Primary Care Physician No OPERATIVE REPORT PREOPERATIVE DIAGNOSIS Abscess of right upper arm and right forearm. POSTOPERATIVE DIAGNOSIS Abscess of right upper arm and right forearm. PROCEDURES PERFORMED Incision and drainage of right upper arm abscess 3 cm2 and an incision and drainage of right forearm abscess 2 cm2. ANESTHESIA General endotracheal. COMPLICATIONS None. ESTIMATED BLOOD LOSS Minimal. DESCRIPTION OF PROCEDURE After the patient was prepped and draped in usual fashion, each abscess was addressed sequentially. An incision was made over the top of each area with a scalpel approximately 2 cm in length. Abscess was breached. Pus was expressed and sent for culture. Each abscess cavity was irrigated and suctioned free. The tissue beneath all appeared to be viable. Each cavity was packed with quarter-inch iodoform gauze. Dressings were applied. The patient was taken to the recovery room in good condition. Dictated by... Rafael Acuna/baylee TD: 02/01/2017 18:24 JOB #: [id number] Unit #: [id number] #: [id number] Patient: JOHN BRIONES OPERATIVE REPORT Page 1 of 1 X Matt Trammell X PROCEDURE OPERATIVE NOTE
[2017-01-31 14:54] LABS: BASOPHIL% 0.5 % (0-2.5); EOSINOPHIL# 0.2 X10e3 (0-0.7); EOSINOPHIL% 1.7 % (0.0-7.0); HEMATOCRIT 38.5 % (35.0-45.0); LYMPHOCYTE# 1.8 X10e3 (1.0-3.5); LYMPHOCYTE% 17.5 % (17.0-45.0); MEAN CELL VOLUME 92.8 FL (83-96); MEAN CORPUSCULAR HEMOGLOBIN 31.3 PG (28-34); MEAN CORPUSCULAR HGB CONC 33.7 g/dL (30-36); MEAN PLATELET VOLUME 8.5 FL (6.5-11.5); MONOCYTE# 0.6 X10e3 (0-1.0); MONOCYTE% 5.9 % (3.0-12.0); NEUTROPHIL# 7.5 X10e3 (1.5-7.1); NEUTROPHIL% 74.4 % (40-75); PLATELET COUNT 272 X10e3 (140-420); RED BLOOD COUNT 4.15 X10e (3.90-5.30); RED CELL DISTRIBUTION WIDTH 13.8 % (11.0-15.5); WHITE BLOOD COUNT 10.1 X10e3 (4.0-10.5)
[2017-01-31 14:55] LABS: DIFF IND NO
[2017-01-31 15:34] LABS: ALBUMIN SERUM 3.6 g/dL (3.5-5.0); BILIRUBIN, DIRECT 0.1 mg/dL (0.0-0.2); BILIRUBIN,INDIRECT 0.3 mg/dL (0.0-0.9); BILIRUBIN,TOTAL 0.4 mg/dL (0.2-2.0); BUN/CREATININE RATIO 27.14; CALCIUM SERUM 8.7 mg/dL (8.4-10.2); CREATININE SERUM 0.7 mg/dL (0.6-1.4); GLOM FILT RATE Estimated 109.9 mL/min (>60); POTASSIUM 3.7 mmol/L (3.5-5.1); PROTEIN TOTAL SERUM 7.7 g/dL (6.0-8.3)
[2017-01-31] MEDS ORDERED: DESYREL50 MG PO (17:13)
[2017-01-31] MEDS ORDERED: NEURONTIN600 MG PO (17:13)
[2017-01-31] MEDS ORDERED: ULTRAM PO (17:13)
[2017-01-31] MEDS ORDERED: PATIENT'S PHARMACY (17:14)
[2017-01-31 17:38] LABS: AMPHETAMINE POS (NEG); BARBITURATES NEG (NEG); BENZODIAZEPINES POS (NEG); COCAINE NEG (NEG); MARIJUANA NEG (NEG); OPIATES NEG (NEG); TRICYCLIC ANTIDEPRESSANTS NEG (NEG); U METHADONE NEG (NEG)
[2017-02-01 05:30] LABS: BASOPHIL% 0.6 % (0-2.5); EOSINOPHIL# 0.2 X10e3 (0-0.7); EOSINOPHIL% 1.8 % (0.0-7.0); HEMATOCRIT 36.3 % (35.0-45.0); HEMOGLOBIN 12.2 gm/dL (12.0-16.0); LYMPHOCYTE# 2.2 X10e3 (1.0-3.5); LYMPHOCYTE% 25.8 % (17.0-45.0); MEAN CELL VOLUME 93.2 FL (83-96); MEAN CORPUSCULAR HEMOGLOBIN 31.4 PG (28-34); MEAN CORPUSCULAR HGB CONC 33.7 g/dL (30-36); MEAN PLATELET VOLUME 8.8 FL (6.5-11.5); MONOCYTE# 0.5 X10e3 (0-1.0); MONOCYTE% 6.2 % (3.0-12.0); NEUTROPHIL# 5.6 X10e3 (1.5-7.1); NEUTROPHIL% 65.6 % (40-75); PLATELET COUNT 273 X10e3 (140-420); RED CELL DISTRIBUTION WIDTH 13.6 % (11.0-15.5); WHITE BLOOD COUNT 8.6 X10e3 (4.0-10.5)
[2017-02-01 05:51] LABS: DIFF IND NO
[2017-02-01 06:07] LABS: ALBUMIN SERUM 3.1 g/dL (3.5-5.0); BILIRUBIN,TOTAL 0.3 mg/dL (0.2-2.0); CALCIUM SERUM 8.4 mg/dL (8.4-10.2); CREATININE SERUM 0.6 mg/dL (0.6-1.4); GLOM FILT RATE Estimated 115.6 mL/min (>60); POTASSIUM 4.3 mmol/L (3.5-5.1)
[2017-02-01 11:07] LABS: INR 1.1; PARTIAL THROMBOPLASTIN TIME 29.4 SECONDS (23.5-31.3); PROTHROMBIN TIME (PATIENT) 11.4 SECONDS (10.0-11.7)
[2017-02-03] MEDS ORDERED: OMNICEF300 M1 PO (16:22)
[2017-02-07 16:12] LABS: HA AB IGM (HEPPAN) Nonreactive (()); HB CORE AB IGM (HEPPAN) Nonreactive (Nonreactive); HB S AG (HEPPAN) Reactive (Nonreactive); HEP C AB (HEPPAN) Reactive (Nonreactive)
== END 2017-02-03 20:07 | disposition home or self-care (01) | DRG 908 ==
LOC: CED 13:29 → CEDOF 17:10 → CED 17:36 → CEDOF 02-01 01:53 → C3A PCU 02-01 01:53 → C4C 02-01 14:55
PROVIDERS: Emergency Medicine; Family Medicine; Surgery
PROC: 0J9D0ZZ Drainage of Right Upper Arm Subcutaneous Tissue and Fascia, Open Approach (ICD-10-PCS; 2017-02-01)
PROC: 05H533Z Insertion of Infusion Device into Right Subclavian Vein, Percutaneous Approach (ICD-10-PCS; 2017-02-01)
PROC: B546ZZA Ultrasonography of Right Subclavian Vein, Guidance (ICD-10-PCS; 2017-02-01)
PROC: 0J9G0ZZ Drainage of Right Lower Arm Subcutaneous Tissue and Fascia, Open Approach (ICD-10-PCS; principal; 2017-02-01 11:30)
DX: T40.1X1A Poisoning by heroin, accidental (unintentional), initial encounter (principal); L02.413 Cutaneous abscess of right upper limb; F32.9 Major depressive disorder, single episode, unspecified; L03.113 Cellulitis of right upper limb; Z85.3 Personal history of malignant neoplasm of breast; Z98.51 Tubal ligation status; Z86.14 Personal history of Methicillin resistant Staphylococcus aureus infection; Z88.2 Allergy status to sulfonamides; F17.210 Nicotine dependence, cigarettes, uncomplicated; Z59.0 Homelessness; B96.20 Unspecified Escherichia coli [E. coli] as the cause of diseases classified elsewhere
CPT/HCPCS: 36415; 80048; 80053; 80074; 80076; 80307; 84703; 85025; 85610; 85730; 86592; 87040; 87070; 87075; 87077; 87186; 87205; 87522; 87806; 90715; 96365; 99285; J0696; J1885; J2270; J2405; J3010; J3370

== ENCOUNTER 2017-04-03 07:52 | Inpatient (IN) | payer OTHER ==
[~2017-04-03] VITALS: Ht 165.1 cm; Wt 55.5 kg
--- NOTE | ~2017-04-03 | CO ---
Unit #: [id number] #: [id number] Patient: JOHN BRIONES [id number] [address] [place], [place] [address] [id number] I MR#: [id number] NAME: JOHN BRIONES. ROOM: [facility] Age: 36 Sex: F Admission Date: 04/06/2017 : 1980 Attending Physician: Deisy Vincent M.D. Primary Care Physician: Primary Care Physician No CONSULTATION REPORT REASON FOR CONSULTATION Abnormal echocardiogram with pericardial effusion. HISTORY OF PRESENT ILLNESS This is a 36-year-old white female with a longstanding history of methamphetamine and IV heroin use. She is known to have an MRSA abscesses and was admitted to the hospital with a left wrist abscess. She had incision and drainage of the left wrist abscess. In 2013, she was admitted at [facility] and was told to have endocarditis. There was no surgical intervention done at that time. She had a CAT scan of the abdomen and pelvis that revealed bilateral pleural effusions, but there was partially imaged left pericardial effusion. Echocardiogram was obtained, which confirmed a large pericardial effusion with evidence of tamponade that was present. The patient had a complaint of shortness of breath. She has metastatic stage IV breast cancer to the lungs and spine. She has underwent chemo and radiation therapy, but apparently she became homeless in 10/2016. She has had no additional therapy. She continues to use IV drugs up until the day prior to her admission. PAST MEDICAL HISTORY 1. Stage IV breast cancer metastatic to lungs and spine, status post left mastectomy with chemo and radiation therapy. 2. History of infective endocarditis. 3. Hypertension. 4. IV drug use. 5. Active smoker. 6. Anxiety/depression. PAST SURGICAL HISTORY 1. Cholecystectomy. 2. Tubal ligation. SOCIAL HISTORY The patient is currently homeless. She continues to smoke a half a pack of cigarettes a day. She admits to IV heroin use and occasional methamphetamine use. No alcohol use. FAMILY HISTORY Negative for coronary artery disease. ALLERGIES Sulfa and latex. Unit #: [id number] #: [id number] Patient: JOHN BRIONES HOME MEDICATIONS No prior home medications. REVIEW OF SYSTEMS CONSTITUTIONAL: Negative for fever or chills. Has weakness and fatigue. HEENT: No headache. Denies hearing or visual changes. No dizziness. CARDIOVASCULAR: Has no symptoms of angina. Unaware of palpitations. Denies paroxysmal nocturnal dyspnea or orthopnea. RESPIRATORY: Positive for dyspnea at rest, worse on exertion. Has occasional nonproductive cough. No hemoptysis. GASTROINTESTINAL: Has generalized abdominal discomfort. No hematochezia, hematemesis, or melena. EXTREMITIES: Has no lower extremity edema. Has left upper extremity lymphedema. PHYSICAL EXAMINATION VITAL SIGNS: Blood pressure 138/91, heart rate is 103, temperature 98.3. GENERAL: This is a 36-year-old young white female, who appears older than her stated age. NEUROLOGIC: She is awake, alert, and oriented. There are no focal weaknesses. NECK: Trachea is midline. No thyromegaly or lymphadenopathy. No jugular venous distention. HEART: S1 and S2. No S3 or S4. No murmurs. No rubs or clicks. Regular rate and rhythm. LUNGS: Diminished breath sounds in both lungs, more evident in the bases. No rhonchi or wheezing. ABDOMEN: Soft, tender with palpation. No hepatomegaly. Bowel sounds are present. EXTREMITIES: Bilateral lower extremities without edema. Noted for left upper extremity lymphedema. DIAGNOSTIC STUDIES LABORATORY RESULTS: Glucose 91, BUN 10, creatinine 0.7, sodium 134, potassium 4.2. White count 9.1, hemoglobin 13.5, hematocrit 40.0, platelet count 236. IMAGING STUDIES: Chest x-ray showed multiple pulmonary metastasis, questionable right mid lobe infiltrate. CT of the abdomen and pelvis shows bilateral pleural effusions. There are innumerous lung masses. There is partially imaged large pericardial effusion. CARDIOVASCULAR STUDIES: EKG shows normal sinus rhythm with a rate of 74 beats per minute with T-wave inversion in V1 and V2. IMPRESSION 1. Left wrist abscess, status post incision and drainage. 2. History of methicillin-resistant Staphylococcus aureus abscesses. 3. Large pericardial effusion. 4. Stage IV metastatic breast cancer. 5. History of infective endocarditis. 6. IV drug use. 7. Nicotine abuse. PLAN Unit #: [id number] #: [id number] Patient: JOHN BRIONES 1. Cardiology was consulted for abnormal echocardiogram, which showed evidence of tamponade that was present. The patient is currently stable and not in tamponade. She had normal left ventricular systolic function. It was discussed with Dr. Britton that if the patient clinically deteriorates, he will see her tonight. Otherwise, plan for pericardiocentesis in the a.m. 2. We will hold antihypertensive medications at this time. 3. We will follow the patient with you. Thank you for allowing us to assist with this patient's care. Dictated by... Kacey Farah/baylee TD: 04/09/2017 13:15 JOB #: [id number] CC: Ashley Hennessy M.D. CONSULTATION REPORT Page 1 of 1 X Graham Campbell APRN X CONSULTATION REPORT
--- NOTE | ~2017-04-03 | CR72 ---
[facility] A Service of [facility] & [facility] RADIOLOGY TEXT RESULTS PATIENT: JOHN BRIONES LOCATION: [address]19 : [birth year] UNIT #: [id number] AGE: [address]: Deisy Vincent MD SEX: F ORDER DR: [id number] [facility] [address] [facility]. [place], [place] [address] [id number] I MR#: [id number] Acc #: [id number] NAME: JOHN BRIONES : 1980 SEX: F STUDY DATE/TIME: 04/09/2017 4:39 UNIT: [facility] ROOM: [facility] STUDY DESCRIPTION: CR Chest Single View Portable Attending Physician: Deisy Vincent M.D. Ordering Physician: Jean Paul Britton M.D. Primary Care Physician: No Primary Care Physician MEDICAL IMAGING REPORT This report is preliminary unless electronic signature is present EXAM Portable chest HISTORY Shortness of air and weakness for 3 days. FINDINGS Compared to yesterday there has been no significant change. Stable moderately extensive multifocal patchy bilateral pulmonary infiltrates. Small bilateral pleural effusions. Small-caliber catheter or drain is projected over the left lower mediastinum. No new infiltrates. Left mastectomy. Dictated by... Tico Song M.D. THIS IS AN ELECTRONICALLY VERIFIED REPORT Tico Song M.D. at 04/09/2017 10:07 PM DFL/sary TD: 04/09/2017 08:32 JOB #: [id number] MEDICAL IMAGING REPORT Page 1 of 1 COPY
--- NOTE | ~2017-04-03 | CR71 ---
[facility]. [facility] A Service of [facility] & [facility] RADIOLOGY TEXT RESULTS PATIENT: JOHN BRIONES LOCATION: [address] : [birth year] UNIT #: [id number] AGE: [address]: Deisy Vincent MD SEX: F ORDER DR: [id number] [facility] [address] [facility] [address] [place], [place] [address] [id number] I MR#: [id number] Acc #: [id number] NAME: JOHN RBIONES. : 1980 SEX: F STUDY DATE/TIME: 04/08/2017 15:09 UNIT: [facility] ROOM: [facility] STUDY DESCRIPTION: CR Chest Single View Attending Physician: Deisy Vincent M.D. Ordering Physician: Jean Paul Britton M.D. MEDICAL IMAGING REPORT This report is preliminary unless electronic signature is present EXAM AP radiograph of the chest 04/08/2017 HISTORY Post placement of pericardial catheter and pericardiocentesis earlier today. History of breast cancer. TECHNIQUE AP radiograph of the chest is presented. COMPARISON STUDIES Comparison to chest radiograph 04/03/[address] 01/18/2017. FINDINGS Findings have been reviewed at time of this dictation with Dr. Britton directly. Pericardial drainage catheter in place. No acute-appearing bony abnormality. Surgical clips left axilla. Patient appears to be status post left mastectomy. The cardiac silhouette is borderline enlarged. Decreased in overall size subsequent to pericardiocentesis. Abnormal hilar prominence bilaterally, felt to reflect underlying known adenopathy in this patient with known metastatic breast cancer. Multifocal nodular densities superimposed over the lungs corresponding to known pulmonary metastatic lesions. Superimposed pulmonary edema with interstitial and central airspace components and some right basilar airspace involvement. This has worsened in the interval from 04/03/2017. There is a small right pleural effusion. No left pleural effusion. Relative lucency at the left lung base without clear visualization of visceral pleural line. I would favor that this is a radiographic artifact related to patient positioning, technique, and diminished chest wall soft tissues given left mastectomy. Attention at followup recommended for [facility] A Service of [facility] & [facility] RADIOLOGY TEXT RESULTS PATIENT: JOHN BRIONES LOCATION: [address]- : [birth year] UNIT #: [id number] AGE: [address]: Deisy Vincent MD SEX: F ORDER DR: possible small left basilar pneumothorax. No acute-appearing bony abnormality. Dictated by... Anam Menjivar M.D. THIS IS AN ELECTRONICALLY VERIFIED REPORT Anam Menjivar M.D. at 04/09/2017 7:53 PM Johnny TD: 04/08/2017 19:59 JOB #: [id number] MEDICAL IMAGING REPORT Page 1 of 1 COPY
--- NOTE | ~2017-04-03 | MR18 ---
[facility] A Service of [facility] RADIOLOGY TEXT RESULTS PATIENT: JOHN BRIONES LOCATION: C2A - : [birth year] UNIT #: [id number] AGE: [address]: Deisy Vincent MD SEX: F ORDER DR: [id number] [facility] [address] [place], [place] [address] [id number] I MR#: [id number] Acc #: [id number] NAME: JOHN BRIONES : 1980 SEX: F STUDY DATE/TIME: 04/10/2017 11:03 UNIT: [facility] ROOM: [facility] STUDY DESCRIPTION: MR Brain Wo Contrast Attending Physician: Deisy Vincent M.D. Ordering Physician: Reece Hyman M.D. Primary Care Physician: Primary Care Physician No MRI CENTER REPORT This report is preliminary unless electronic signature is present. EXAM Brain MRI without contrast 04/10/2017 PROCEDURE Routine unenhanced brain MRI CLINICAL HISTORY History of metastatic breast cancer with decreased level of consciousness and abnormal head CT on 04/08. PROCEDURE Study is motion degraded. The CT examination demonstrated at least 2 intraaxial metastatic lesions, 1 in the lateral right temporal lobe measuring about 13 x 8 11 mm and 1 in the right occipital cortex measuring about 2.9 x 2.1 cm. Both lesions are seen on MRI with some surrounding vasogenic edema but there is certainly no acute ischemia or other acute restricted diffusion. No additional lesions are seen but could easily be obscured on this unenhanced study by substantial patient motion. There is no midline shift or evidence of parenchymal hemorrhage. IMPRESSION Redemonstrated right temporal and occipital intraaxial masses with vasogenic edema. There is fairly substantial patient motion and both lesions were actually slightly better seen on the contrasted head CT. No evidence of any new or additional lesions is seen. No acute ischemia or evidence of acute hemorrhage. No midline shift. Dictated by... [facility] A Service [facility] RADIOLOGY TEXT RESULTS PATIENT: JOHN BRIONES LOCATION: C2A : [birth year] UNIT #: [id number] AGE: [address]: Deisy Vincent MD SEX: F ORDER DR: Derrick Bazan M.D. THIS IS AN ELECTRONICALLY VERIFIED REPORT Derrick Bazan M.D. at 04/11/2017 4:06 PM OMAIRA/lico TD: 04/10/2017 13:58 JOB #: [id number] MRI CENTER REPORT Page 1 of 1 COPY
--- NOTE | ~2017-04-03 | HP ---
Unit #: [id number] #: [id number] Patient: JOHN HERNANDEZ [id number] [address] [address] [id number] I MR#: [id number] NAME: JOHN HERNANDEZ. ROOM: 548 Age: 36 Sex: F Admission Date: 04/03/2017 : 1980 Attending Physician: Izabel Carter M.D. HISTORY AND PHYSICAL HISTORY OF PRESENT ILLNESS Ms. Hernandez is a 36-year-old female with a long history of IV drug abuse and multiple previous MRSA-positive abscesses. She continues to use heroin on a daily basis and remains homeless. She now has an abscess on the lateral aspect of the dorsum of the right hand near the fifth digit. She has swelling over the hand and wrist and as a result of the swelling decreased range of motion. There is no evidence of ischemia. She also has had progression of her metastatic breast cancer and has requested a hospice consultation. PAST MEDICAL HISTORY 1. Metastatic breast cancer with progression of metastatic disease in the lungs. She has previously had chemotherapy and radiation and is status post left mastectomy. 2. Endocarditis. 3. Breast cancer. 4. Depression. 5. MRSA infections. 6. Heroin abuse. 7. Tubal ligation. ALLERGIES Sulfa. HOME MEDICATIONS None. FAMILY HISTORY Heart disease. SOCIAL HISTORY Homeless. She smokes cigarettes, she uses IV drug daily, and denies alcohol. REVIEW OF SYSTEMS Otherwise unremarkable. PHYSICAL EXAMINATION VITAL SIGNS: Temperature is 98, pulse 70, respirations 20, and blood pressure 171/92. GENERAL: She is awake, alert, and oriented. HEENT: Unremarkable. CARDIAC: Regular rhythm. LUNGS: Clear. Unit #: [id number] #: [id number] Patient: JOHN HERNANDEZ ABDOMEN: Soft. EXTREMITIES: Abscess over the dorsum of the right hand as described. The right hand is swollen. She has decreased range of motion but again, no ischemia. DIAGNOSTIC STUDIES LABORATORY: Comprehensive metabolic panel shows a potassium of 3.2 and an albumin of 2.8, otherwise unremarkable. INR is 1.1. White count 11,800, hemoglobin 12.7, and platelets 250,000. Previous labs showed hepatitis B surface antigen reactive and hepatitis C antibody reactive. Recent HIV was nonreactive. Current toxicology screen is positive for amphetamines and opiates. Urinalysis is negative for infection. Blood cultures pending. No wound cultures available. IMAGING: Chest x-ray shows significant progression of metastatic disease with multiple pulmonary metastases, right middle lobe infiltrate possibly reflecting pneumonia, and possible pericardial effusion. ASSESSMENT AND PLAN A 36-year-old female with: 1. Abscess on the right hand secondary to IV drug abuse. She will need incision, drainage, and debridement in the operating room. I discussed this the patient, and she understands and agrees to proceed. She has had multiple drainage procedures for similar problems. 2. Right middle lobe pneumonia. 3. Pericardial effusion and history of endocarditis. 4. Progressive metastatic breast cancer. Hospice consult requested. 1. Dictated by Rafael Carrion/qiana TD: 04/03/2017 18:20 JOB #: [id number] HISTORY AND PHYSICAL Page 1 of 1 X Hai Camarillo MD X HISTORY AND PHYSICAL
--- NOTE | ~2017-04-03 | CO ---
Unit #: [id number] #: [id number] Patient: JOHN BRIONES [id number] [facility] [address] [facility]. [place], [place] [address] [id number] I MR#: [id number] NAME: JOHN BRIONES ROOM: 229 Age: 36 Sex: F Admission Date: 04/06/2017 : 1980 Attending Physician: Deisy Vincent M.D. Primary Care Physician: Primary Care Physician No Consultation Date: 04/06/2017 CONSULTATION REPORT REASON FOR CONSULTATION IV drug use, withdrawals from opiate. HISTORY OF PRESENT ILLNESS Ms. Albright is a 36-year-old white female, seen in room 229, bed 1 on 04/06/2017 at [facility]. The patient was admitted on 04/03/2017. The patient reports that she is having symptoms of withdrawal, hot and cold sweats, nervousness, restlessness of her legs, severe anxiety, trouble sleeping, depression. The patient diagnosed with endocarditis, breast cancer. The patient currently denied any suicidal or homicidal ideation. Denied any psychotic symptom. The patient's vital signs; temperature 98.2, pulse rate 124, blood pressure 154/116, and oxygen saturation 92%. PAST PSYCHIATRIC HISTORY Remarkable for history of depression and anxiety, history of substance abuse. The patient has a history of previous treatment through [facility] jeremy Fatima, last admitted on 01/01/2017 to 01/07/2017 for depression and substance abuse. MEDICAL HISTORY History of metastatic breast cancer, progression to metastatic disease in lungs, status post chemotherapy, radiation, left mastectomy. History of endocarditis, breast cancer, MRSA infection, heroin abuse, tubal ligation. ALLERGIES To sulfa. MEDICATIONS Home medication, none. The patient is currently on Catapres p.r.n., Norvasc, and Reglan. FAMILY HISTORY AND SOCIAL HISTORY The patient reports that she has a good support system. No history of abuse. History of substance abuse as mentioned above. REVIEW OF SYSTEMS Complete review of system is unremarkable except as mentioned above. MENTAL STATUS EXAMINATION The patient's vital signs; temperature 98.2, pulse rate 124, blood pressure 154/116, oxygen saturation 92%. General appearance; the patient dressed in hospital attire, lying comfortably in bed. Attention span and concentration, fair. Speech, regular rate and coherent. Oriented in Unit #: [id number] #: [id number] Patient: JOHN BRIONES time, place, and person. Mood and affect, sad and depressed. Thought process, coherent. Thought content, the patient denied any suicidal or homicidal ideation or any hallucination, but feeling of hopelessness, worthlessness, sad, depressed. Recent and remote memory, fair. Language, intact. Fund of knowledge, fair. Insight and judgment, fair to slightly impaired. DIAGNOSES Psychiatric: Opioid use disorder, severe, F11.20; major depressive disorder, recurrent, severe; amphetamine use disorder, severe, F15.20. Secondary diagnosis: Deferred. Medical diagnosis: Please refer to H and P. Stressors: Psychosocial stressors. ASSESSMENT/PLAN 1. Supportive psychotherapy and psychoeducation provided to the patient. 2. Educated about benefits and side effects of medication and course and prognosis of illness. 3. Advised to add Desyrel 50 mg at bedtime for sleep, Celexa 20 mg daily for depression, Requip 1 mg at bedtime for the restlessness of her legs, Vistaril p.r.n. for anxiety, Neurontin 300 mg t.i.d. Please feel free to call if any questions, telephone #[phone]. Dictated by... Rafael Romero/baylee TD: 04/07/2017 10:08 JOB #: [id number] CONSULTATION REPORT Page 1 of 1 X Mario Cruz MD X CONSULTATION REPORT
--- NOTE | ~2017-04-03 | CR72 ---
[facility] A Service [facility] RADIOLOGY TEXT RESULTS PATIENT: JOHN BRIONES LOCATION: [facility] 548-01 : [birth year] UNIT #: [id number] AGE: [address]: VANDANA MCMAHAN MD SEX: F ORDER DR: [id number] [place] [id number] [facility]. [place], [place] [address] [id number] MR#: [id number] Acc #: [id number] NAME: JOHN BRIONES. : 1980 SEX: F STUDY DATE/TIME: 04/03/2017 9:15 UNIT: [facility] ROOM: STUDY DESCRIPTION: CR Chest Single View Portable Attending Physician: Deandra Portillo M.D. Ordering Physician: Deandra Portillo M.D. Primary Care Physician: No Primary Care Physician MEDICAL IMAGING REPORT This report is preliminary unless electronic signature is present EXAM Portable chest. HISTORY Fever and shortness of breath with cough and chills for the past 2 days. Stage IV breast cancer on the left. TECHNIQUE Single AP view chest was obtained and compared with 01/18/2017. FINDINGS Since the previous examination, the patient has developed increased densities in both lungs. Findings are consistent with significant progression of metastatic disease since the previous examination. Additionally, there is an area of more dense consolidation at the right lung base, likely in the middle lobe. This is suspicious for pneumonia. The other lung lesions are more suggestive of progressive metastatic disease. No definite pleural effusions are seen, although the pleura does appear to be thickened at both lung bases. This could reflect pleural metastasis. The cardiac silhouette also appears wider than on the previous exam. Findings are suggestive of a pericardial effusion. IMPRESSION 1. Significant progression of metastatic disease with multiple pulmonary metastases appearing larger than on the previous exam. 2. Dense consolidation just above the right diaphragm suspicious for a right middle lobe infiltrate. This could reflect pneumonia. 3. The cardiac silhouette is wider than on the previous examination. This raises the possibility of pericardial effusion. Dictated by... [facility] A Service [facility] RADIOLOGY TEXT RESULTS PATIENT: JOHN BRIONES LOCATION: [facility] 548- : [birth year] UNIT #: [id number] AGE: [address]: VANDANA MMCAHAN MD SEX: F ORDER DR: Hai Lazo M.D. THIS IS AN ELECTRONICALLY VERIFIED REPORT Hai Lazo M.D. at 04/03/2017 4:54 PM KAROLINEF/latisha TD: 04/03/2017 11:24 JOB #: [id number] MEDICAL IMAGING REPORT Page 1 of 1 COPY
--- NOTE | ~2017-04-03 | DS ---
Unit #: [id number] #: [id number] Patient: JOHN BRIONES [id number] [address] [place], [place] [address] [id number] I MR#: [id number] NAME: JOHN BRIONES. ROOM: 229 Age: 36 Sex: F Admission Date: 04/06/2017 : 1980 Discharge Date: 04/10/2017 Attending Physician: Deisy Vincent M.D. Primary Care Physician: No Primary Care Physician DISCHARGE SUMMARY PLACE OF DISCHARGE Inpatient hospice. REASON FOR ADMISSION Shortness of breath. HISTORY OF PRESENT ILLNESS/HOSPITAL COURSE Patient is a 36-year-old female, prior history of ongoing IV drug abuse, prior history of MRSA endocarditis, metastatic breast carcinoma, who was brought to the emergency department secondary to increased difficulty with breathing and/or shortness of breath. Patient admitted adamantly to initial ER evaluation that she was an IV drug abuser. She was noted to have a right hand abscess. Consultation was placed to [facility]. Patient saw and evaluated and seen by Dr. Lema. Patient ultimately underwent incision and drainage of an abscess on the dorsum of the right hand on April 04, 2017. Secondary to prior history of breast carcinoma, questionable metastatic. Patient did ultimately undergo CT chest which did reveal metastatic lesions present throughout as well as a CT abdomen/pelvis without contrast which did raise the possibility of adenopathy. Patient also underwent a CT head noncontrast which did show two separate lesions, both consistent with metastatic in nature. Dr. Hyman stated the patient was a candidate for treatment. However, overall, the prognosis was poor. Secondary to prior history of IV drug abuse as well as ongoing anxiety and/or depression, Dr. Cruz was consulted. Appropriate medications were initiated in regards to the same. The patient did undergo the aforementioned CT chest which did reveal bilateral pleural effusion as well as a large pericardial effusion. The patient underwent 2D echocardiogram as read by Dr. Hennessy which did show cardiac tamponade concerning for increased size of pericardial effusion and subsequently consultation was placed to Dr. Britton. On April 08, 2017, patient underwent subxiphoid pericardiocentesis with a small catheter which was left in place. Afterwards, patient was placed in the ICU. After review, discussion with all physicians as well as numerous family Unit #: [id number] #: [id number] Patient: JOHN BRIONES members including patient's mother, father as well as patient's two daughters present at bedside and in discussion and review of her overall prognosis, patient as well as family members elected for hospice care. They stated that pain control as well as patient's level of comfort was their top priority. Therefore, consultation was placed to hospice and, after evaluation, patient was deemed appropriate for transfer to inpatient hospice facilities for ongoing care. 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 FINAL DISCHARGE DIAGNOSES 1. Metastatic breast carcinoma. 2. Pulmonary nodules/metastatic lesions. 3. Pericardial effusion, malignant in nature. 4. Bilateral pleural effusions, likely secondary to metastatic/malignancy. 5. IV drug abuse. 6. Right hand abscess. 7. Prior history of methicillin resistant Staph aureus endocarditis. 8. Severe/intractable chronic pain syndrome. FINAL DISCHARGE MEDICATIONS/DISPOSITION Per inpatient hospice services. Dictated by... Deisy Vincent M.D. BIA/jozef TD: 04/14/2017 18:07 JOB #: [id number] DISCHARGE SUMMARY Page 1 of 1 X Deisy Vincent MD X DISCHARGE SUMMARY
--- NOTE | ~2017-04-03 | CO ---
Unit #: [id number] #: [id number] Patient: JOHN HERNANDEZ [id number] [address] [place], [place] [address] [id number] I MR#: [id number] NAME: JOHN HERNANDEZ. ROOM: [facility] Age: 36 Sex: F Admission Date: 04/06/2017 : 1980 Attending Physician: Deisy Vincent M.D. Primary Care Physician: Primary Care Physician No CONSULTATION REPORT HISTORY OF PRESENT ILLNESS Ms. Hernandez presented to the emergency room with increasing shortness of breath. Chest x-ray showed worsening metastatic disease. CT scan of the abdomen and pelvis revealed bilateral pleural effusions, large pericardial effusion, suspected upper abdominal lymphadenopathy, innumerable pulmonary masses noticed in the bases of the lungs, some increased bibasilar densities. She had had no fever or chills. She has had a little cough. We were asked to see for pleural effusion. She has also had an abscess of her dorsum of the right hand. She underwent surgical debridement, finding a 1.5 cm abscess without apparent tendinous involvement. PAST MEDICAL HISTORY Significant for metastatic breast cancer, MRSA endocarditis, multiple MRSA, skin abscesses, history of IV drug abuse. She has been followed by Dr. Devries initially for her lung cancer in 2012, underwent left mastectomy and has been followed at [facility] for a few months earlier this year, but had stopped going in followup. PAST SURGICAL HISTORY Tubal ligation, left hysterectomy. ALLERGIES Sulfa. HOME MEDICATIONS None. SOCIAL HISTORY She is currently homeless. Smokes half pack a day. Uses IV drugs daily including heroin. Denies alcohol use. FAMILY HISTORY Negative. REVIEW OF SYSTEMS Shortness of breath, some sputum production, drainage from right wrist area, lymphedema of left limb. PHYSICAL EXAMINATION GENERAL: White female, in no distress. VITAL SIGNS: Blood pressure is 118/70, pulse 77, respiratory rate 18 and afebrile. HEENT: Normocephalic, atraumatic. Pupils are equal, round, and reactive. Sclerae nonicteric. Nasal passages patent. Posterior pharynx clear. Unit #: [id number] #: [id number] Patient: JOHN HERNANDEZ Mucous membranes moist. NECK: Supple. LUNGS: Diminished breath sounds. CARDIAC: Regular rate and rhythm. Could not appreciate murmur or gallop. ABDOMEN: Nontender. Bowel sounds present. Liver firm, about four or five fingerbreadths below the right costophrenic margin. EXTREMITIES: Without clubbing, cyanosis, or edema. NEUROLOGIC: Awake and oriented x3. Cranial nerves grossly intact. Muscle strength symmetric. Affect calm. LABORATORY STUDIES CT of the abdomen and pelvis noted and reviewed personally. Chemistries reviewed. BMP unremarkable. White blood cell count initially 75161, currently 9100; hematocrit 40.0; platelet count normal. IMPRESSION 1. Metastatic breast cancer with pulmonary metastasis, bilateral pleural effusions, pericardial effusion, abdominal lymphadenopathy and liver metastasis. 2. IV drug abuse. 3. 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 PLAN Currently, Dr. Garcia is to see for treatment options and plan. The patient wishes to be transferred to hospice care through them. We will hold on any invasive procedure until treatment options discussed with Dr. Garcia. Dictated by... Patrice Deras M.D. JB/baylee TD: 04/09/2017 13:54 JOB #: [id number] CONSULTATION REPORT Page 1 of 1 X Patrice Deras MD X CONSULTATION REPORT
--- NOTE | ~2017-04-03 | CO ---
Unit #: [id number] #: [id number] Patient: JOHN BRIONES [id number] [address] [place], [place] [address] [id number] I MR#: [id number] NAME: JOHN BRIONES. ROOM: [facility] Age: 36 Sex: F Admission Date: 04/06/2017 : 1980 Attending Physician: Deisy Vincent M.D. Primary Care Physician: Adenike Primary Care Physician Consultation Date: 04/07/2017 CONSULTATION REPORT REASON FOR EVALUATION Metastatic breast cancer, please evaluate. HISTORY OF PRESENT ILLNESS Patient is a 36-year-old lady with history of breast cancer, mainly treated in [facility], does not remember the name of the oncologist but she states that she had a mastectomy, followed by chemotherapy, followed by radiation therapy, followed by pills to take and she was told that the breast cancer was gone, now presents with evidence of very extensive bilateral lung metastases and pericardial effusion and possible pericardiocentesis in the morning and we were requested to evaluate to see if patient would desire to have any further treatments to be done. Today on walking on the room, the patient is very drowsy but awakes upon calling. She states that she knows that she has cancer and that she wants everything done. She says she wants therapy to be done and then abruptly falls asleep and awakens again upon request. PAST MEDICAL HISTORY Past history mainly obtained from the chart. Patient is too drowsy to give me much of history but she states that her left mastectomy, chemotherapy, radiation therapy was done by a cancer doctor in [facility] and that she does not remember his name. FAMILY HISTORY Family history is negative for breast cancers. SOCIAL HISTORY Social history is remarkable for patient denying any drug abuse although the whole chart states that there is severe drug abuse. MEDICATIONS No current/chronic medications. ALLERGIES Sulfa. REVIEW OF SYSTEMS Whatever could be obtained was very little. She falls asleep in the middle, states that she is not having any nausea or vomiting. There is no headache but the review of systems was extremely limited. PHYSICAL EXAMINATION GENERAL: On exam she is extremely drowsy, difficult to keep her awake. Unit #: [id number] #: [id number] Patient: JOHN BRIONES LYMPHATIC: No palpable nodes. without evidence of recurrence. LUNGS: Crackles, no rales. ABDOMEN: No organomegaly. IRRIGATION SERVICE TECHNICIAN: Difficult to ascertain because she is oriented x2 only; states that it is September and possibly 2011 or 2015 and then finally 2016. I could not do a thorough IRRIGATION SERVICE TECHNICIAN exam. PALVIS: A pelvic exam was not performed. DIAGNOSTIC STUDIES LABORATORY: CBC: Hemoglobin 13.5, hematocrit 40, white count 9100, platelets 236,000. Sodium 134, potassium 4.2, chloride 102, CO2 24, glucose 91, BUN 10, creatinine 0.7. IMPRESSION This 36-year-old lady with a history of breast cancer, all her records are in [facility], presents here and was found to have bilateral pleural effusions and pericardial effusion symptomatic and they are about to proceed with pericardiocentesis in the morning and the patient is extremely drowsy. I am not sure if the decreased mentation is due to her medication versus metastatic disease to the brain. PLAN I will proceed with a CT brain with IV contrast, obtain the records from [facility] regarding the past, the H and P and discharge summary, and will tell the safety tech and the CT surgeon that the patient desires to be treated so they can proceed with pericardiocentesis. Dictated by... Rafael Muro/chloe TD: 04/07/2017 20:46 JOB #: [id number] CONSULTATION REPORT Page 1 of 1 X Reece Hyman MD CONSULTATION REPORT
--- NOTE | ~2017-04-03 | CT69 ---
[facility] A Service of [facility] RADIOLOGY TEXT RESULTS PATIENT: JOHN BRIONES [address] [birth year] UNIT #: [id number] AGE: [address]: Deisy Vincent MD SEX: F ORDER DR: [id number] [facility] [address] [facility]. [place], [place] [address] [id number] I MR#: [id number] Acc #: [id number] NAME: JOHN BRIONES : 1980 SEX: F STUDY DATE/TIME: 04/08/2017 11:32 UNIT: C5B ROOM: [facility] STUDY DESCRIPTION: CT Head W Contrast Attending Physician: Deisy Vincent M.D. Ordering Physician: Hiren Hyman M.D. Primary Care Physician: No Primary Care Physician MEDICAL IMAGING REPORT This report is preliminary unless electronic signature is present EXAM Head CT with contrast. HISTORY Patient with known metastatic breast cancer. Very drowsy today. Evaluate metastatic disease. Dizziness for 2 days. TECHNIQUE Cont[address] enhanced [address] of the brain obtained axial plane. 100 mL of Isovue-370 given. Portion of the study is repeated due to patient motion. This CT exam was performed with one or more of the following radiation dose reduction techniques: automatic exposure control, adjustment of mA and/or kV according to patient size, and iterative reconstruction. FINDINGS There is no comparison imaging of the brain at this institution. Outside records and films are requested; but, since the examination is abnormal, this report is being rendered without benefit of comparison at this time. There is a large hyperdense area seen in the right posterior parietal lobe centered in the deep white matter. It is mostly ovoid with some ill-defined margins more superiorly and posteriorly measuring up to about 3.1 x 2.3 cm dimension. It is associated with surrounding vasogenic edema and local mass effect. There is mass effect upon the adjacent right lateral ventricle. There is a smaller similar lesion in the right temporal lobe posterosuperiorly about 1.3 cm in diameter with surrounding vasogenic edema and local mass effect. Since I do not have precontrast imaging, I cannot differentiate between acute blood products and enhancement. These could be parenchymal hemorrhages, hemorrhagic parenchymal metastases, or large enhancing metastases as main differential considerations. Most helpful would be correlation with clinical course and outside imaging. Efforts underway to reach Dr. Hyman to discuss the case further. There is no hydrocephalus. There is no midline shift or downward herniation. The basilar cisterns are still patent. There is [facility] A Service of [facility] RADIOLOGY TEXT RESULTS PATIENT: JOHN BRIONES LOCATION: [facility] : [birth year] UNIT #: [id number] AGE: [address]: Deisy Vincent MD SEX: F ORDER DR: mild asymmetric sulcal effacement on the right side consistent with a right-sided mass effect. There is no calvarial lesion appreciated and the visualized mastoid air cells and paranasal sinuses are clear. IMPRESSION 1. There are 2 hyperdense lesions within the brain parenchyma with surrounding vasogenic edema. The larger of the 2 is centered in the deep right parietal white matter measuring up to about 3.1 x 2.3 cm in dimension. It is associated with mass effect in a localized fashion such that there is some mass effect on the right lateral ventricle and effacement of the right-sided sulci, but there is no midline shift. A second smaller lesion is seen at the right posterior-superior temporal lobe. See differential discussion above and most helpful would be acquisition of the outside imaging. At this time, imaging suggests possibilities of acute hemorrhage, hemorrhagic metastatic disease, or enhancing intracranial masses. STAT * RESULT I spoke to Dr. Hyman within ten minutes of this dictation. Dictated by... Jessica Auguste M.D. THIS IS AN ELECTRONICALLY VERIFIED REPORT Jessica Auguste M.D. at 04/08/2017 5:41 PM SARIKA/venkatesh TD: 04/08/2017 12:43 JOB #: [id number] MEDICAL IMAGING REPORT Page 1 of 1 COPY
--- NOTE | ~2017-04-03 | CT4 ---
[facility] A Service of [facility] & [facility] RADIOLOGY TEXT RESULTS PATIENT: JOHN BRIONES LOCATION: C2A 229- : [birth year] UNIT #: [id number] AGE: [address]: Deisy Vincent MD SEX: F ORDER DR: [id number] [facility] [address] [place], [place] [address] [id number] I MR#: [id number] Acc #: [id number] NAME: JOHN BRIONES. : 1980 SEX: F STUDY DATE/TIME: 04/05/2017 14:18 UNIT: C2A ROOM: 229 STUDY DESCRIPTION: CT Abd and Pelv Wo Cont Attending Physician: Deisy Vincent M.D. Ordering Physician: Deisy Vincent M.D. Primary Care Physician: Primary Care Physician No MEDICAL IMAGING REPORT This report is preliminary unless electronic signature is present EXAM CT abdomen and pelvis without contrast, 04/05/2017 HISTORY 36-year-old female with shortness of air for 5 days. Generalized abdominal pain for 1 month. History of metastatic breast cancer. IV drug abuse. COMPARISON CT chest 01/18/2017. CT abdomen and pelvis 07/27/2008. TECHNIQUE Helical scan performed through the abdomen and pelvis without IV contrast. Oral contrast only was given. Coronal and sagittal reformatted images. This CT exam was performed with one or more of the following radiation dose reduction techniques: automatic exposure control, adjustment of mA and/or kV according to patient size, and iterative reconstruction. FINDINGS Since the prior chest CT from 01/18/2017, there has been interval development of partially imaged tulmekvz-id-tqfgb bilateral pleural effusions. There are innumerable pulmonary masses noted in the visualized lung bases consistent with known metastatic breast cancer. There are bibasilar infiltrates also noted and superimposed pneumonia not excluded. There is a large partially imaged pericardial effusion. Liver grossly unremarkable on this unenhanced exam. Borderline splenomegaly. The pancreas, both adrenal glands, and both kidneys are grossly unremarkable. Gallbladder is surgically absent. Abdominal aorta normal in course and caliber. There is suspected upper abdominal lymphadenopathy although evaluation is limited given the lack of IV contrast. Small bowel is otherwise unremarkable without obstruction. STS. [facility] A Service of [facility] & [facility] RADIOLOGY TEXT RESULTS PATIENT: JOHN BRIONES LOCATION: [facility] 229-01 : [birth year] UNIT #: [id number] AGE: [address]: Deisy Vincent MD SEX: F ORDER DR: Colon is grossly unremarkable. No free fluid or free air. Urinary bladder, uterus, and both adnexa are unremarkable. No significant free pelvic fluid. No acute bony abnormality. IMPRESSION 1. Fiizjvhk-oj-cgzhf partially imaged bilateral pleural effusions. Innumerable pulmonary masses noted in the visualized lung bases consistent with known metastatic breast cancer. There are bibasilar infiltrates and superimposed pneumonia not excluded. 2. Partially imaged large pericardial effusion. 3. Suspected upper abdominal lymphadenopathy although evaluation is limited given the lack of IV contrast. 4. Cholecystectomy. Dictated by... Charles Perales M.D. THIS IS AN ELECTRONICALLY VERIFIED REPORT Charles Perales M.D. at 04/07/2017 10:49 AM Ernie TD: 04/06/2017 16:55 JOB #: [id number] MEDICAL IMAGING REPORT Page 1 of 1 COPY
--- NOTE | ~2017-04-03 | EKG ---
PATIENT: JOHN BRIONES UNIT #: [id number] Ventricular Rate: 74 BPM Atrial Rate: 74 BPM P-R Interval: 102 ms QRS Duration: 112 ms Q-T Interval: 460 ms QTC Calculation(Bezet): 510 ms P [place]: 36 degrees Calculated R [place]: 23 degrees Calculated T [place]: 58 degrees Diagnosis Line: Sinus rhythm with sinus arrhythmia with short [place] Diagnosis Line: Nonspecific ST elevation T wave abnormality, Diagnosis Line: consider anterior ischemia Diagnosis Line: Abnormal ECG Diagnosis Line: When compared with ECG of 18-JAN-2017 17:48, Diagnosis Line: Non-specific change in ST segment in Inferior Diagnosis Line: leads Diagnosis Line: QT has lengthened Diagnosis Line: Confirmed by MARIA ALEJANDRA SANTANA MD ([id number]) on 04/04/2017 Diagnosis Line: 5:00:31 PM INTERPRETING MD: MAX ROGERS
--- NOTE | ~2017-04-03 | CO ---
Unit #: [id number] #: [id number] Patient: JOHN BRIONES [id number] [address] [address] [id number] I MR#: [id number] NAME: JOHN BRIONES ROOM: 229 Age: 36 Sex: F Admission Date: 04/06/2017 : 1980 Attending Physician: Deisy Vincent M.D. Primary Care Physician: Primary Care Physician No CONSULTATION REPORT REASON FOR CONSULTATION Followup. DISCUSSION Ms. John Mello is a 36-year-old white female, seen in room CCU 2, bed 9 on 04/09/2017. The patient dressed casually, lying in bed, somewhat uncomfortable. The patient's family was at the bedside. Nursing staff reported that possibly she will be going to hospice care from comfort care at this time. The patient reported having lot of problem with the anxiety. No suicidal ideation or homicidal ideation. Somewhat anxious and guarded. Complete review of systems is unremarkable. The patient's signs; pulse 115, respirations 15, blood pressure 139/75, and oxygen saturation 95%. MENTAL STATUS EXAMINATION General appearance; the patient dressed casually in hospital attire, somewhat uncomfortable, restless, anxious. Attention span and concentration, fair. Speech, slow in volume. Oriented in place and person. Mood and affect, labile. Thought process, circumstantial. Thought content, guarded, but denied any thoughts of harming self or others. Recent and remote memory, fair. Language, fair. Fund of knowledge, fair. Insight and judgment, fair to slightly impaired. DIAGNOSES Psychiatric: Opioid use disorder, severe, F11.20; major depressive disorder, recurrent, severe, F33.2. Secondary diagnosis: Deferred. ASSESSMENT AND PLAN 1. Supportive psychotherapy and psychoeducation provided to the patient. 2. Educated about benefits and side effects of medication and course and prognosis of illness. The patient is currently on comfort care, transferred to hospice care. I advised to continue with current medication and to make the patient comfortable. Advised to change Ativan to 1 mg q.4 p.r.n. for severe anxiety. Please feel free to call if any questions telephone #[phone]. Dictated by... Rafael Romero/baylee Unit #: [id number] #: [id number] Patient: JOHN BRIONES TD: 04/10/2017 19:31 JOB #: [id number] CONSULTATION REPORT Page 1 of 1 X Mario Cruz MD X CONSULTATION REPORT
--- NOTE | ~2017-04-03 | HP ---
Unit #: [id number] #: [id number] Patient: JOHN BRIONES [id number] [address] [address] [id number] I MR#: [id number] NAME: JOHN BRIONES. ROOM: 548 Age: 36 Sex: F Admission Date: 04/03/2017 : 1980 Attending Physician: Vandana Carter M.D. Primary Care Physician: No Primary Care Physician HISTORY AND PHYSICAL CHIEF COMPLAINT Shortness of breath. HISTORY OF PRESENT ILLNESS The patient is a 36-year-old female with past medical history of IV drug abuse, MRSA endocarditis, breast cancer with metastasis to the "liver," depression. Brought to the emergency room complaining of shortness of breath. The patient was diagnosed with breast cancer back in 2012 status post chemo and radiation; however, the breast cancer reoccurred back in May of last year. The patient continues to use IV drugs, heroin, and the last use was 2 days ago. The patient also complains of swelling and tenderness at the IV injection site. The patient had a chest x-ray that showed pneumonia 0050 and is being admitted for the above reasons. The patient had extensive discussion with the ER physician and wanted to have Hospice evaluation. The patient was being admitted for the above reasons. PAST MEDICAL HISTORY History of right upper extremity abscess status post I and D, history of MRSA, history of endocarditis, history of breast cancer with metastasis to the lungs, depression. PAST SURGICAL HISTORY Tubal ligation and left mastectomy. ALLERGIES Sulfa. HOME MEDICATIONS The patient takes none. SOCIAL HISTORY The patient is homeless. She smokes cigarettes, half a pack. She uses IV drugs daily, including heroin. She denies alcohol use. FAMILY HISTORY Reviewed and none. REVIEW OF SYSTEMS Positive for shortness of breath, mucosa yellowish color, and positive for skin swelling and redness and drainage from the right wrist with tenderness. Positive for left upper limb lymphedema. PHYSICAL EXAMINATION Unit #: [id number] #: [id number] Patient: JOHN BRIONES GENERAL: The patient is lying in the bed, not in acute distress. VITALS: Temperature 97.1, pulse 74, respiratory rate 17, blood pressure 152/106, satting 96% on room air. HEENT: Head atraumatic, normocephalic. Pupils are equal, round, reactive to light and accommodation. Extraocular movements are intact. Dry mucous membranes. NECK: Supple. LUNGS: Decreased air entry at the bases. Positive for rhonchi. HEART: Regular rate and rhythm. ABDOMEN: Soft. Positive bowel sounds. EXTREMITIES: The patient had an abscess at the right fifth metacarpophalangeal joint and status post I and D in the emergency room with tenderness, drainage and fluctuance. Positive for left upper extremity lymphedema. NEUROLOGIC: Alert, awake, oriented. PSYCHIATRIC: The patient is anxious, and the patient has crying spells. DIAGNOSTIC STUDIES LAB DATA: WBC 11.8, hemoglobin 12.7, hematocrit 37, platelets 250. UA shows 1+ leukocyte esterase, 10-25 WBCs. INR is 1.1. Urine drug screen is positive for amphetamines and opiates. BNP is 127. Sodium 134, potassium 3.2, chloride 98, bicarb 25, BUN 11, creatinine 0.6, AST 30, ALT 20, alkaline phosphatase 111, albumin 2.8. Troponin less than 0.05. Lactic acid 1.6. IMAGING: Chest x-ray shows significant progression of metastatic disease with multiple pulmonary metastasis appearing larger than on the previous exam. Dense consolidation just above the right diaphragm suspicious for a right middle lobe infiltrate. This could reflect pneumonia. The cardiac silhouette is wider than on the previous examination. This raises the possibility of pericardial effusion. ASSESSMENT 1. Right middle lobe pneumonia. 2. Cellulitis and abscess. 3. Drug abuse. PLAN Plan to admit the patient inpatient. Continue with IV antibiotics with vancomycin and Zosyn with history of MRSA in the past. Will have LSA evaluation for I and D of the abscess of the right fifth metacarpal joint, and will have palliative care for Hospice evaluation. Further recommendations will follow as more lab results are available. Dictated by Rafael Glez TD: 04/03/2017 15:23 JOB #: [id number] Unit #: [id number] #: [id number] Patient: JOHN BRIONES HISTORY AND PHYSICAL Page 1 of 1 X VANDANA CARTER MD HISTORY AND PHYSICAL
--- NOTE | ~2017-04-03 | CR72 ---
[facility] A Service of [facility] RADIOLOGY TEXT RESULTS PATIENT: JOHN BRIONES LOCATION: [facility] 229-01 : [birth year] UNIT #: [id number] AGE: [address]: Deisy Vincent MD SEX: F ORDER DR: [id number] [facility] [address] [place], [place] [address] [id number] I MR#: [id number] Acc #: [id number] NAME: JOHN BRIONES. : 1980 SEX: F STUDY DATE/TIME: 04/08/2017 17:37 UNIT: [facility] ROOM: [facility] STUDY DESCRIPTION: CR Chest Single View Portable Attending Physician: Deisy Vincent M.D. Ordering Physician: Jean Paul Britton M.D. MEDICAL IMAGING REPORT This report is preliminary unless electronic signature is present EXAM Chest x-ray 04/08/2017 HISTORY 36-year-old female with metastatic breast cancer and shortness of air. She also has a history of IV drug abuse and MRSA infection. Evaluation for post-procedure pneumothorax is requested. TECHNIQUE AP portable upright chest x-ray. FINDINGS There is no evidence of post-procedure pneumothorax. Presumed left side pericardial drain is in place, and there is no evidence of post-procedure pneumothorax or pneumomediastinum. Cardiac silhouette has decreased in size since the recent study of 04/03/2017. Numerous large ill-defined mass-like opacities throughout both lungs in a patient with history of known metastatic breast cancer as well as IV drug abuse. Pulmonary metastatic disease is likely, but progressive septic pulmonary emboli are also possible. Diffusely increased reticulonodular interstitial markings throughout both lungs, possibly representing lymphangitic pulmonary metastasis. Small pleural effusions, greater on the right. Probable mediastinal and bilateral hilar adenopathy. Left mastectomy. IMPRESSION 1. No pneumothorax following placement of pericardial drain. 2. Multiple pulmonary nodules and larger ill-defined masses throughout both lungs. [facility] A Service of [facility] RADIOLOGY TEXT RESULTS PATIENT: JOHN BRIONES LOCATION: A 229-01 : [birth year] UNIT #: [id number] AGE: [address]: Deisy Vincent MD SEX: F ORDER DR: 3. Diffusely increased reticulonodular interstitial markings. Lymphangitic metastatic disease is a consideration. 4. Small pleural effusions, larger on the right. 5. Left mastectomy. Mediastinal and hilar adenopathy. Dictated by... Dickson Cherry M.D. THIS IS AN ELECTRONICALLY VERIFIED REPORT Dickson Cherry M.D. at 04/18/2017 12:22 PM OTTOW/jorge TD: 04/08/2017 22:24 JOB #: [id number] MEDICAL IMAGING REPORT Page 1 of 1 COPY
--- NOTE | ~2017-04-03 | CO ---
Unit #: [id number] #: [id number] Patient: JOHN BRIONES [id number] [address] [place], [place] [address] [id number] I MR#: [id number] NAME: JOHN BRIONES ROOM: [facility] Age: 36 Sex: F Admission Date: 04/06/2017 : 1980 Attending Physician: Deisy Vincent M.D. Primary Care Physician: Primary Care Physician No Consultation Date: 04/07/2017 CONSULTATION REPORT HISTORY OF PRESENT ILLNESS The patient is a 36-year-old white female with a history of IV drug abuse, MRSA endocarditis, metastatic breast carcinoma, and depression, who was admitted on 04/03/2017 secondary to right middle lobe pneumonia as well as an abscess and cellulitis of the right hand. She was started on vancomycin and Zosyn on admission. She underwent incision and drainage of the right hand abscess on 04/04/2017. A chest x-ray on admission showed dense consolidation in the right middle lobe, an enlarged cardiac silhouette, and multiple pulmonary metastasis. An abdominal CT scan done on 04/05/2017 showed moderate to large bilateral pleural effusions, a large pericardial effusion, and multiple pulmonary nodules consistent with metastatic breast carcinoma. The patient also underwent an echocardiogram on 04/07/2017 that showed a large pericardial effusion with evidence of tamponade. It should be stated that she has an ejection fraction of 55% to 60%. We were asked to see the patient for possible pericardiocentesis versus a pericardial window. It should be stated that the patient is a DNR and is considering going to inpatient hospice. ALLERGIES Allergic to sulfa drugs. PAST MEDICAL HISTORY The patient has a history of breast carcinoma that was diagnosed back in 2012. She was subsequently treated with chemotherapy and radiation therapy. She now has known metastatic disease to the lungs. MEDICATIONS Her present medications include vancomycin, Zosyn, Neurontin, Vistaril, clonidine, Requip, Celexa, and trazodone. REVIEW OF SYSTEMS Essentially negative except for those things stated in the present illness and past history. PHYSICAL EXAMINATION VITAL SIGNS: The patient's temperature is 98, the pulse is 99, respirations 20, and blood pressure is 154/75. HEAD, EARS, EYES, NOSE, AND THROAT: Normocephalic without lesions. Extraocular movements are full. NECK: Supple without adenopathy. LUNGS: Decreased breath sounds at the bases bilaterally. The patient has bilateral rhonchi present. HEART: Regular rhythm without murmurs and with somewhat distant heart sounds. Unit #: [id number] #: [id number] Patient: JOHN BRIONES ABDOMEN: Soft and nontender without masses and with positive bowel sounds. EXTREMITIES: The patient's right hand is dressed from recent drainage of an abscess. She has some swelling of the left hand and left arm. IMPRESSION 1. Large pericardial effusion with signs of tamponade. 2. Moderate bilateral pleural effusions. 3. Metastatic breast carcinoma. 4. History of drug abuse. 5. History of methicillin-resistant Staphylococcus aureus abscess of the right hand that was recently drained on 04/04/2017. PLAN Plan to take the patient to the operating room tomorrow for performance of a pericardiocentesis versus possible subxiphoid pericardial window. Dictated by... Rafael Salazar/baylee TD: 04/09/2017 16:39 JOB #: [id number] CONSULTATION REPORT Page 1 of 1 X Jean Paul Britton MD X CONSULTATION REPORT
--- NOTE | ~2017-04-03 | CO ---
Unit #: [id number] #: [id number] Patient: JOHN BRIONES [id number] [facility] [address]. [place], [place] [address] [id number] I MR#: [id number] NAME: JOHN BRIONES ROOM: [facility] Age: 36 Sex: F Admission Date: 04/06/2017 : 1980 Attending Physician: Deisy Vincent M.D. Primary Care Physician: Adenike Primary Care Physician Requesting Physician: Reece Hyman M.D. Consultation Date: 04/09/2017 CONSULTATION REPORT PATIENT IDENTIFICATION This is a 36-year-old, right handed, white female who is evaluated in ICU room 9 at [facility]. SOURCE OF INFORMATION The patient and medical records. PROBLEM LIST 1. Metastatic breast cancer. 2. History of anxiety. 3. History of arthritis. 4. Benign essential hypertension. 5. Chronic kidney disease. 6. History of DVT right upper extremity. 7. Gallstone. 8. Hepatitis C. 9. Hepatitis B carrier. 10. Immune deficiency disorder. 11. Migraine. 12. MRSA. 13. Status post left radical modified mastectomy. 14. Mediport insertion. 15. Tubal ligation. 16. She is a smoker. 17. Polysubstance abuser including IV drugs. 18. She recently had abscess on the dorsum of the right hand and she had incision and drainage done. 19. IV drug use and possible withdrawal. HISTORY OF PRESENT ILLNESS This is a 36-year-old female who actually admitted for different reasons but she has been diagnosed with brain mets. She had pericardial effusion and tamponade. She is status post pericardial window but they did a head CT and showed lesions and brain parenchyma with surrounding vasogenic edema, the largest one in the deep right parietal lobe, a small lesion in the right temporal lobe. The question is with the way the signal is that could this be hemorrhage but definitely there is significant edema so MRI and CT with contrast are pending. She has known diagnosis of breast cancer. It looks like she was going to [facility]. I am not sure what has happened there. It looks like she is not taking any medication lately. Unit #: [id number] #: [id number] Patient: JOHN BRIONES No falls or injuries. One of the biggest concern is that she may be withdrawing but, because of this lesion, the concern is there. Looking at her prior records, she may have been on Cymbalta, Neurontin, Seroquel, Requip, Desyrel. No headaches. No seizures. No double vision. She has left sided edema, probably as a result of surgery. She is not on any anti-epileptics. I think that one of the biggest concern has been drug use and she wants to sometimes go home, other times she wants to stay so it is a very confusing picture. She has had bilateral pleural effusion. She has symptomatic pericardial effusion, likely related to her cancer metastatic condition. One of the concern was decreased mentation and what was the cause of it. Again, nobody available to corroborate the history but if she does not say any seizures or other issues, whether she is going to withdrawal. She has some respiratory failure but improving. No steroids and no anti-epileptics. PAST MEDICAL HISTORY As discussed above. PAST SURGICAL HISTORY As discussed above. ALLERGIES Sulfa. It doesn't look like she was taking any medication or at least nothing that we know of. That is a bit strange considering she had I and D done. FAMILY HISTORY Negative for any cancers or neurologic issues, especially breast cancer. SOCIAL HISTORY Apparently she is a smoker. She does acknowledge drug use, she acknowledges IV drug use. Denies any alcohol. REVIEW OF SYSTEMS GENERAL: Very lethargic. She denies any headaches, she denies any double vision, she denies any sleep issues, she denies any fever or chills, rigors or sweats. HEENT: No headaches, no double vision, no earache, runny nose, sore throat. CARDIOVASCULAR: No chest pain, clubbing, cyanosis, orthopnea, palpitations. PULMONARY: No shortness of air, cough or expectoration. No nausea, vomiting, diarrhea or constipation. GENITOURINARY: No genitourinary symptoms. EXTREMITIES: No extremity problems otherwise. BACK: No back problems. PSYCH: No psychotic issues, anxiety or depression. NEUROLOGICAL: No neurological issues, brain lesions. She has cancer. DERMATOLOGIC/ENDOCRINE: No dermatologic or endocrine issues otherwise Unit #: [id number] #: [id number] Patient: JOHN BRIONES known to me but she recently had an abscess drained. PHYSICAL EXAMINATION VITAL SIGNS: Temperature is 97.8, pulse 108, respirations of 14, blood pressure 137/78. Pain was 0-10/10. O2 sats were 93-94% mostly. Her weight is 146 pounds. NEUROLOGICAL EXAMINATION: The patient is awake with some drowsiness though she knows she is in the hospital. She knows this is March 2017 but she thinks this is the or so and it's a Friday instead of the and Friday. She can name, she can follow commands. No right/left confusion, no finger agnosia. CRANIAL NERVE EXAMINATION: Demonstrates respond to threats in all cannon. Eye movements are conjugate. I did not see any ptosis, I did not see any nystagmus. Funduscopic examination was not successful. No ptosis, no nystagmus was seen. Pupils are round, reactive to light and accommodation, size about 3 mm. Sensation on the face and scalp are normal. Strength of muscles of facial expression are normal. Hearing is intact. Tongue was midline. I could not visualize the oropharynx or uvula. Head turning was spontaneous. No signs of meningismus. MOTOR EXAMINATION: Demonstrated edema in the left upper extremity. Strength was 4+/5 all over. SENSORY EXAMINATION: Intact for soft touch and pain sensation. No extinction was seen. Romberg was not evaluated. REFLEXES: I could not get any reflexes. Toes are mute. DIAGNOSTIC STUDIES LABORATORY: Random glucose was 91 to 121. Sodium was 132 to 135. Albumin is 2.5. INR is 1.1. White count is 13.3. HB surface antigen positive and Hep-C reactive. Hep-B core antibody reactive/positive. Urine drug screen positive for amphetamines and opiates on April 03. Urinalysis shows 10-25 WBCs. IMAGING: Head CT is reviewed. MRI pending. IMPRESSION 1. Decreased level of consciousness. 2. Other issues. 3. Breast cancer. 4. Possible brain lesions, could be mets, could be hemorrhage, could be secondary to infection so I will first get an MRI and will discuss with cardiology regarding possibility we may need a THEODORE. I will put her on steroids, I will put her on Keppra and will go from there. The issue is get imaging study and go from there. Avoid aggressive anticoagulation and will see how things go. I will keep you informed. She hasn't had any symptoms but likely because this is nondominant hemisphere and she hasn't had any seizures yet. I will follow up. I will keep you informed. Call me with any other questions, issues or concerns. Unit #: [id number] #: [id number] Patient: JOHN BRIONES Dictated by... Rafael Lizama/jozef TD: 04/10/2017 09:45 JOB #: [id number] CONSULTATION REPORT Page 1 of 1 X Agusto Huber MD X CONSULTATION REPORT
--- NOTE | ~2017-04-03 | OR ---
Unit #: [id number] #: [id number] Patient: JOHN BRIONES [id number] [address] [place], [place] [address] [id number] I MR#: [id number] NAME: JOHN BRIONES ROOM: 548 Date of Procedure: 04/04/2017 Admission Date: 04/03/2017 Surgeon: Juan Lema Jr., M.D. : 1980 Attending Physician: Deisy Vincent M.D. Primary Care Physician: Primary Care Physician No OPERATIVE REPORT INDICATIONS FOR PROCEDURE The patient is a 36-year-old white female with metastatic breast cancer, who is also a substance abuser. She has had multiple abscesses in both arms. Denies an abscess on the dorsum of the right hand. It was felt this should be incised and drained with sharp excisional debridement. She is brought to the operating room at this time for this procedure. She understands the procedure including the risk of damage to the tendons beneath the wound and progressive infection and consents. PREOPERATIVE DIAGNOSIS Abscess on the dorsum of right hand. POSTOPERATIVE DIAGNOSIS Abscess on the dorsum of right hand, noting approximately 1.5 cm abscess without apparent tendinous involvement. ANESTHESIA General with LMA. PROCEDURE PERFORMED Incision and drainage, and sharp excisional debridement using a #10 blade scalpel down to the deeper subcutaneous tissue of the dorsum of the right hand. DESCRIPTION OF PROCEDURE The patient was positioned in supine position and after being anesthetized, she was prepped and draped in routine fashion for incision and drainage of the abscess of the dorsum of her right hand laterally. An elliptical incision was made around the abscess with being totally excised the surrounding tissue down to the deeper subcutaneous tissue with a #10 blade scalpel. After this was performed, the base of the wound was scraped with a #10 blade scalpel and after hemostasis was achieved with Bovie cautery, the wound was packed with saline moist dry dressings. Sterile dressings were applied externally. Estimated blood loss minimal. No drains used. The patient received less than 500 mL crystalloid solution during the procedure. Sponges and instrument counts were correct x3, and no complications. The patient was taken to the recovery room with stable vital signs in satisfactory condition. Dictated by... Juan Lema Jr., M.D. Unit #: [id number] #: [id number] Patient: JOHN BRIONES SHANICE/baylee TD: 04/04/2017 16:29 JOB #: [id number] OPERATIVE REPORT Page 1 of 1 X Juan Lema MD X PROCEDURE OPERATIVE NOTE
--- NOTE | ~2017-04-03 | OR ---
Unit #: [id number] #: [id number] Patient: JOHN BRIONES [id number] [address] [place], [place] [address] [id number] I MR#: [id number] NAME: JOHN BRIONES ROOM: [facility] Date of Procedure: 04/08/2017 Admission Date: 04/06/2017 Surgeon: Jean Paul Britton M.D. : 1980 Attending Physician: Deisy Vincent M.D. Primary Care Physician: Primary Care Physician No OPERATIVE REPORT PREOPERATIVE DIAGNOSIS Large pericardial effusion with signs of tamponade; history of metastatic breast carcinoma. POSTOPERATIVE DIAGNOSIS Large pericardial effusion with signs of tamponade; history of metastatic breast carcinoma with the findings of a bloody pericardial effusion. PROCEDURE PERFORMED Subxiphoid pericardiocentesis with a small silastic catheter left in place. ANESTHESIA MAC plus local 1% Xylocaine. ESTIMATED BLOOD LOSS Minimal. COMPLICATIONS None. DESCRIPTION OF PROCEDURE The patient was taken to the operating room and placed on the operating room table in a supine position. After appropriate monitoring lines had been placed, IV sedation was given per the Anesthesia Department. The anterior chest and upper abdomen were prepped with ChloraPrep and draped in a sterile fashion. After adequate anesthesia had been obtained using local 1% Xylocaine, a needle was used to then pass just to the left of the xiphoid process and go up to enter the pericardium. Once the pericardium was entered, dark bloody fluid was obtained. A guidewire was passed per this needle into the pericardium. A stab wound was made at the area where the guidewire entered the skin. A dilator was passed over the guidewire. Following this, a small silastic catheter was passed over the guidewire into the pericardium. The guidewire was then removed. A stopcock was applied to the catheter and a 60 mL syringe was used to aspirate fluid from the pericardium. About 130 mL of the bloody pericardial effusion was aspirated and sent for cytology as well as cultures and chemistries. After adequate anesthesia had been obtained using local 1% Xylocaine, the catheter was secured in place to the skin using interrupted 3-0 silk suture. The stopcock was removed. Sterile IV tubing was connected to the catheter and it was then connected to a collecting bag. The area was then dressed with a Tegaderm dressing. Estimated blood loss in the procedure was minimal. Sponge and needle counts in the operation were correct. The Unit #: [id number] #: [id number] Patient: JOHN BRIONES patient tolerated the procedure well and left the operating room in satisfactory condition. Dictated by... Rafael Salazar/baylee TD: 04/09/2017 16:42 JOB #: [id number] OPERATIVE REPORT Page 1 of 1 X Jean Paul Britton MD X PROCEDURE OPERATIVE NOTE
[~2017-04-03 07:52] MED LIST changes: +OMNICEF300 M1 PO; +PATIENT'S PHARMACY
[2017-04-03 09:27] LABS: BASOPHIL% 0.1 % (0-2.5); EOSINOPHIL# 0.1 X10e3 (0-0.7); EOSINOPHIL% 0.5 % (0.0-7.0); HEMOGLOBIN 12.7 gm/dL (12.0-16.0); LYMPHOCYTE# 1.7 X10e3 (1.0-3.5); LYMPHOCYTE% 14.7 % (17.0-45.0); MEAN CELL VOLUME 91.3 FL (83-96); MEAN CORPUSCULAR HEMOGLOBIN 31.2 PG (28-34); MEAN CORPUSCULAR HGB CONC 34.2 g/dL (30-36); MEAN PLATELET VOLUME 9.4 FL (6.5-11.5); MONOCYTE# 0.7 X10e3 (0-1.0); NEUTROPHIL# 9.3 X10e3 (1.5-7.1); NEUTROPHIL% 78.7 % (40-75); PLATELET COUNT 250 X10e3 (140-420); RED BLOOD COUNT 4.05 X10e (3.90-5.30); RED CELL DISTRIBUTION WIDTH 12.9 % (11.0-15.5); WHITE BLOOD COUNT 11.8 X10e3 (4.0-10.5)
[2017-04-03 09:28] LABS: URINE SOURCE CLEAN CATCH
[2017-04-03 09:31] LABS: DIFF IND NO
[2017-04-03 09:34] LABS: URINE APPEARANCE CLEAR; URINE BILIRUBIN NEG (NEG); URINE BLOOD NEG (NEG); URINE COLOR YELLOW; URINE GLUCOSE NEG (NEG); URINE KETONE 1+ (NEG); URINE LEUKOCYTE ESTERASE 1+ (NEG); URINE NITRATE NEG (NEG); URINE PROTEIN NEG (NEG); URINE SPECIFIC GRAVITY 1.016 (1.003-1.035)
[2017-04-03] MEDS ORDERED: NO MEDICATIONS (09:34)
[2017-04-03 09:37] LABS: CULTURE INDICATED? YES; URBCS1 AUWI 0-2 /[HPF] (0-2); URINE BACTERIA AUWI NEG (NEGATIVE); URINE SQUAMOUS EPITHELIAL CELL OCC /[HPF]
[2017-04-03 09:42] LABS: INR 1.1; PARTIAL THROMBOPLASTIN TIME 32.7 SECONDS (23.5-31.3)
[2017-04-03 09:49] LABS: AMPHETAMINE POS (NEG); BARBITURATES NEG (NEG); BENZODIAZEPINES NEG (NEG); COCAINE NEG (NEG); MARIJUANA NEG (NEG); OPIATES POS (NEG); TRICYCLIC ANTIDEPRESSANTS NEG (NEG); U METHADONE NEG (NEG)
[2017-04-03 09:54] LABS: ALBUMIN SERUM 2.8 g/dL (3.5-5.0); ALKALINE PHOSPHATASE 111 U/L (32-92); ALT (SGPT) 22 U/L (10-40); AST (SGOT) 30 U/L (10-42); BILIRUBIN, DIRECT 0.2 mg/dL (0.0-0.2); BILIRUBIN,INDIRECT 0.7 mg/dL (0.0-0.9); BILIRUBIN,TOTAL 0.9 mg/dL (0.2-2.0); BLOOD UREA NITROGEN 11 mg/dL (9-23); BUN/CREATININE RATIO 18.33; CALCIUM SERUM 8.7 mg/dL (8.4-10.2); CARBON DIOXIDE 25 mmol/L (22-31); CHLORIDE 98 mmol/L (100-111); CPK (CREATINE PHOSPHOKINASE) 102 IU/L (26-140); CREATININE SERUM 0.6 mg/dL (0.6-1.4); GLOM FILT RATE Estimated 115.6 mL/min (>60); GLUCOSE FASTING 94 mg/dL (70-110); POTASSIUM 3.2 mmol/L (3.5-5.1); PROTEIN TOTAL SERUM 7.3 g/dL (6.0-8.3); SODIUM 134 mmol/L (135-145)
[2017-04-03 09:55] LABS: ALCOHOL BLOOD <5 mg/dL (0)
[2017-04-03 10:13] LABS: POC - CKMB <1.0 ng/mL (0.0-7.9); POC - TROPONIN <0.05 ng/mL (<=0.05)
[2017-04-04 18:16] LABS: HEMATOCRIT 37.9 % (35.0-45.0); HEMOGLOBIN 12.4 gm/dL (12.0-16.0); MEAN CELL VOLUME 92.9 FL (83-96); MEAN CORPUSCULAR HEMOGLOBIN 30.5 PG (28-34); MEAN CORPUSCULAR HGB CONC 32.9 g/dL (30-36); MEAN PLATELET VOLUME 9.1 FL (6.5-11.5); RED BLOOD COUNT 4.08 X10e (3.90-5.30); RED CELL DISTRIBUTION WIDTH 12.8 % (11.0-15.5); WHITE BLOOD COUNT 10.5 X10e3 (4.0-10.5)
[2017-04-04 18:44] LABS: CALCIUM SERUM 8.5 mg/dL (8.4-10.2); CREATININE SERUM 0.5 mg/dL (0.6-1.4); GLOM FILT RATE Estimated 122.8 mL/min (>60); POTASSIUM 4.1 mmol/L (3.5-5.1)
[2017-04-05 07:24] LABS: CALCIUM SERUM 8.6 mg/dL (8.4-10.2); CREATININE SERUM 0.6 mg/dL (0.6-1.4); GLOM FILT RATE Estimated 115.6 mL/min (>60); POTASSIUM 4.3 mmol/L (3.5-5.1)
[2017-04-05 07:39] LABS: HEMATOCRIT 37.6 % (35.0-45.0); HEMOGLOBIN 12.7 gm/dL (12.0-16.0); MEAN CELL VOLUME 91.5 FL (83-96); MEAN CORPUSCULAR HGB CONC 33.8 g/dL (30-36); MEAN PLATELET VOLUME 11.1 FL (6.5-11.5); RED BLOOD COUNT 4.11 X10e (3.90-5.30); RED CELL DISTRIBUTION WIDTH 12.8 % (11.0-15.5); WHITE BLOOD COUNT 9.9 X10e3 (4.0-10.5)
[2017-04-06 07:26] LABS: HEMATOCRIT 40.9 % (35.0-45.0); HEMOGLOBIN 13.9 gm/dL (12.0-16.0); MEAN CELL VOLUME 91.4 FL (83-96); MEAN CORPUSCULAR HEMOGLOBIN 31.1 PG (28-34); MEAN CORPUSCULAR HGB CONC 34.1 g/dL (30-36); MEAN PLATELET VOLUME 7.5 FL (6.5-11.5); RED BLOOD COUNT 4.47 X10e (3.90-5.30); RED CELL DISTRIBUTION WIDTH 12.8 % (11.0-15.5); WHITE BLOOD COUNT 10.6 X10e3 (4.0-10.5)
[2017-04-06 07:52] LABS: BUN/CREATININE RATIO 11.66; CALCIUM SERUM 8.7 mg/dL (8.4-10.2); CREATININE SERUM 0.6 mg/dL (0.6-1.4); GLOM FILT RATE Estimated 115.6 mL/min (>60); POTASSIUM 4.1 mmol/L (3.5-5.1)
[2017-04-07 05:09] LABS: BASOPHIL% 0.2 % (0-2.5); EOSINOPHIL# 0.2 X10e3 (0-0.7); EOSINOPHIL% 1.9 % (0.0-7.0); HEMOGLOBIN 13.5 gm/dL (12.0-16.0); LYMPHOCYTE# 2.5 X10e3 (1.0-3.5); LYMPHOCYTE% 27.7 % (17.0-45.0); MEAN CELL VOLUME 92.2 FL (83-96); MEAN CORPUSCULAR HEMOGLOBIN 31.2 PG (28-34); MEAN CORPUSCULAR HGB CONC 33.8 g/dL (30-36); MEAN PLATELET VOLUME 9.9 FL (6.5-11.5); MONOCYTE# 0.8 X10e3 (0-1.0); MONOCYTE% 9.1 % (3.0-12.0); NEUTROPHIL# 5.6 X10e3 (1.5-7.1); NEUTROPHIL% 61.1 % (40-75); PLATELET COUNT 236 X10e3 (140-420); RED BLOOD COUNT 4.34 X10e (3.90-5.30); RED CELL DISTRIBUTION WIDTH 12.7 % (11.0-15.5); WHITE BLOOD COUNT 9.1 X10e3 (4.0-10.5)
[2017-04-07 05:11] LABS: DIFF IND NO
[2017-04-07 05:49] LABS: ALBUMIN SERUM 2.5 g/dL (3.5-5.0); BILIRUBIN,TOTAL 0.5 mg/dL (0.2-2.0); BUN/CREATININE RATIO 14.28; CALCIUM SERUM 8.5 mg/dL (8.4-10.2); CREATININE SERUM 0.7 mg/dL (0.6-1.4); GLOM FILT RATE Estimated 109.9 mL/min (>60); POTASSIUM 4.2 mmol/L (3.5-5.1); PROTEIN TOTAL SERUM 7.1 g/dL (6.0-8.3)
[2017-04-07 22:02] LABS: INR 1.1; PARTIAL THROMBOPLASTIN TIME 29.7 SECONDS (23.5-31.3); PROTHROMBIN TIME (PATIENT) 12.2 SECONDS (10.0-11.7)
[2017-04-08 06:49] LABS: HEMOGLOBIN 13.9 gm/dL (12.0-16.0); MEAN CELL VOLUME 92.4 FL (83-96); MEAN CORPUSCULAR HEMOGLOBIN 31.3 PG (28-34); MEAN CORPUSCULAR HGB CONC 33.9 g/dL (30-36); MEAN PLATELET VOLUME 8.8 FL (6.5-11.5); RED BLOOD COUNT 4.44 X10e (3.90-5.30); RED CELL DISTRIBUTION WIDTH 12.9 % (11.0-15.5); WHITE BLOOD COUNT 9.9 X10e3 (4.0-10.5)
[2017-04-08 07:22] LABS: BUN/CREATININE RATIO 21.42; CALCIUM SERUM 8.7 mg/dL (8.4-10.2); CREATININE SERUM 0.7 mg/dL (0.6-1.4); GLOM FILT RATE Estimated 109.9 mL/min (>60); POTASSIUM 4.7 mmol/L (3.5-5.1)
[2017-04-08 16:22] LABS: BF TOTAL NUCLEATED CELL COUNT 1332 CMM (0-100); BODY FLUID APPEARANCE BLOODY; BODY FLUID RBC 1262940 CMM; BODY FLUID SOURCE PERICARDIAL
[2017-04-09 05:27] LABS: BASOPHIL% 0.3 % (0-2.5); EOSINOPHIL# 0.2 X10e3 (0-0.7); EOSINOPHIL% 1.3 % (0.0-7.0); HEMATOCRIT 40.4 % (35.0-45.0); HEMOGLOBIN 13.7 gm/dL (12.0-16.0); LYMPHOCYTE# 2.9 X10e3 (1.0-3.5); LYMPHOCYTE% 21.4 % (17.0-45.0); MEAN CELL VOLUME 92.1 FL (83-96); MEAN CORPUSCULAR HEMOGLOBIN 31.3 PG (28-34); MEAN CORPUSCULAR HGB CONC 33.9 g/dL (30-36); MEAN PLATELET VOLUME 8.3 FL (6.5-11.5); MONOCYTE# 1.1 X10e3 (0-1.0); MONOCYTE% 7.9 % (3.0-12.0); NEUTROPHIL# 9.2 X10e3 (1.5-7.1); NEUTROPHIL% 69.1 % (40-75); PLATELET COUNT 316 X10e3 (140-420); RED BLOOD COUNT 4.39 X10e (3.90-5.30); RED CELL DISTRIBUTION WIDTH 12.9 % (11.0-15.5); WHITE BLOOD COUNT 13.3 X10e3 (4.0-10.5)
[2017-04-09 05:43] LABS: BUN/CREATININE RATIO 17.14; CALCIUM SERUM 8.6 mg/dL (8.4-10.2); CREATININE SERUM 0.7 mg/dL (0.6-1.4); GLOM FILT RATE Estimated 109.9 mL/min (>60); POTASSIUM 4.3 mmol/L (3.5-5.1)
[2017-04-09 05:44] LABS: DIFF IND NO
== END 2017-04-10 23:15 | DRG 579 ==
LOC: CED 07:52 → C5B 11:49 → CEDOF 11:49 → CED 11:49 → CEDOF 11:57 → CED 11:57 → C5B 11:57 → CEDOF 13:10 → C5B 13:10 → C2A 04-05 20:28 → C5B 04-06 09:00 → CEDOF 04-06 09:00 → C2A 04-06 09:00 → C5B 04-07 18:16 → CICCU2 04-08 16:28 → C2A 04-10 16:46
PROVIDERS: Emergency Medicine; Family Medicine; Internal Medicine; Surgery
PROC: 0JBJ0ZZ Excision of Right Hand Subcutaneous Tissue and Fascia, Open Approach (ICD-10-PCS; principal; 2017-04-04 17:00)
PROC: 0W9D30Z Drainage of Pericardial Cavity with Drainage Device, Percutaneous Approach (ICD-10-PCS; 2017-04-08)
DX: L02.511 Cutaneous abscess of right hand (principal); J18.9 Pneumonia, unspecified organism; C78.00 Secondary malignant neoplasm of unspecified lung; I31.3 Pericardial effusion (noninflammatory); C78.7 Secondary malignant neoplasm of liver and intrahepatic bile duct; F15.20 Other stimulant dependence, uncomplicated; F11.23 Opioid dependence with withdrawal; C50.919 Malignant neoplasm of unspecified site of unspecified female breast; F32.9 Major depressive disorder, single episode, unspecified; F17.210 Nicotine dependence, cigarettes, uncomplicated; Z90.49 Acquired absence of other specified parts of digestive tract; Z59.0 Homelessness; Z86.14 Personal history of Methicillin resistant Staphylococcus aureus infection; Z98.51 Tubal ligation status; Z90.12 Acquired absence of left breast and nipple; Z88.2 Allergy status to sulfonamides
CPT/HCPCS: 10060; 36415; 70460; 70551; 71010; 74176; 80048; 80053; 80076; 80202; 80307; 81003; 82150; 82550; 82553; 82945; 83605; 83615; 83880; 84157; 84484; 84703; 85025; 85027; 85610; 85730; 86850; 86900; 86901; 86923; 87040; 87070; 87086; 87102; 87116; 87205; 87206; 88108; 88305; 89051; 90471; 90715; 93005; 93306; 94010; 94760; 96361; 96374; 96375; 99285; G0480; J0360; J1100; J1170; J1644; J1650; J1953; J2060; J2250; J2270; J2405; J2543; J3010; J3260; J3370; Q9967